=== PATIENT | male | born 1965 | race Caucasian/White ===

== ENCOUNTER 2017-10-08 23:47 | Inpatient (IN) | payer MEDICAID ==
[~2017-10-08] VITALS: Ht 175.3 cm; Wt 76.7 kg
[2017-10-08] MEDS ORDERED: DIVA500T35 PO (23:57)
[2017-10-08] MEDS ORDERED: GABA-531 PO (23:57)
[2017-10-08] MEDS ORDERED: QUET300T2 PO (23:57)
[2017-10-08] MEDS ORDERED: SERT50TA12 PO (23:57)
[2017-10-09 01:40] LABS: BASOPHILS # (AUTO) 0.09 K/uL (0.00-0.20); EOSINOPHILS # (AUTO) 0.78 K/uL (0.00-0.70); EOSINOPHILS % (AUTO) 8.67 % (1.0-6.0); HEMATOCRIT 42.2 % (41-53); HEMOGLOBIN 14.1 g/dL (13.5-17.5); LYMPHOCYTES # (AUTO) 2.2 K/uL (1.0-4.8); LYMPHOCYTES % (AUTO) 24.7 % (22.0-44.0); MEAN CORPUSCULAR HEMOGLOBIN 31.9 pg (26.0-34.0); MEAN CORPUSCULAR HGB CONC 33.4 G/dL (31.0-37.0); MEAN CORPUSCULAR VOLUME 95 fL (80-100); MONOCYTES # (AUTO) 1.1 K/uL (0.1-1.0); MONOCYTES % (AUTO) 11.8 % (2.0-9.0); NEUTROPHILS # (AUTO) 4.9 K/uL (1.8-7.7); NEUTROPHILS % (AUTO) 53.9 % (40.0-70.0); PLATELET COUNT (AUTO) 248 K/uL (150-450); RED BLOOD CELL COUNT(AUTO) 4.43 MIL/uL (4.50-5.90); RED CELL DISTRIBUTION WIDTH 14.8 % (11.5-14.5)
[2017-10-09 01:53] LABS: ANION GAP 3 mmol/L (8-16); CALCIUM, TOTAL 8.5 mg/dL (8.8-10.5); CARBON DIOXIDE 36 mmol/L (22-29); CHLORIDE 102 mmol/L (98-107); CREATININE 1.26 mg/dL (0.60-1.30); GLOMERULAR FILTR. RATE CALC 60 mL/min (>60); GLUCOSE,RANDOM 98 mg/dL (70-110); POTASSIUM 4.2 mmol/L (3.5-5.1); SODIUM SERUM 141 mmol/L (136-145); UREA NITROGEN, BLOOD 24 mg/dL (7-18)
[2017-10-09 01:59] LABS: ALANINE AMINOTRANSFERASE 125 U/L (12-78); ALBUMIN 3.8 g/dL (3.4-5.0); ALKALINE PHOSPHATASE 118 U/L (46-116); ASPARTATE AMINOTRANSFERASE 38 U/L (15-37); BILIRUBIN,TOTAL 0.2 mg/dL (0.1-1.0); CHOL/HDL RATIO 3.3 (4.2-7.3); CHOLESTEROL 169 mg/dL (131-200); HDL CHOLESTEROL 52 mg/dL (40-60); LDL CHOL (CALC.) 97 mg/dL (0-130); TOTAL PROTEIN, SERUM 8.1 g/dL (6.4-8.2); TRIGLYCERIDES 100 mg/dL (15-150)
[2017-10-09 03:55] VITALS: BP 128/72
[2017-10-09] MEDS: QUEtiapine FUMARATE 100 MG TABLET PO PRN ×2 (04:28→23:55)
[2017-10-09] MEDS: NICOTINE 21 MG/24 HOUR PATCH TD SCH (08:21)
[2017-10-09 08:43] VITALS: BP 102/52
[2017-10-09] MEDS ORDERED: PNEUMOCOCCAL VACCINE POLYVALENT 0.5 ML VIAL [PPSV23] IM ONE (09:00)
[2017-10-09] MEDS: QUEtiapine FUMARATE 300 MG TABLET PO SCH (10:00)
[2017-10-09] MEDS: SERTRALINE HCL 50 MG TABLET PO SCH (10:01)
[2017-10-09] MEDS: GABAPENTIN 300 MG CAPSULE PO SCH ×2 (12:45→16:07)
[2017-10-09 16:23] VITALS: BP 100/60
[2017-10-10 07:11] VITALS: BP 111/66
[2017-10-10 08:06] VITALS: BP 118/76
[2017-10-10] MEDS: NICOTINE 21 MG/24 HOUR PATCH TD SCH (08:32)
[2017-10-10] MEDS: GABAPENTIN 300 MG CAPSULE PO SCH ×3 (08:32→16:06)
[2017-10-10] MEDS: QUEtiapine FUMARATE 300 MG TABLET PO SCH (08:32)
[2017-10-10] MEDS: SERTRALINE HCL 50 MG TABLET PO SCH (08:32)
[2017-10-10 16:11] VITALS: BP 111/63
[2017-10-10] MEDS ORDERED: ACETAMINOPHEN 325 MG TABLET PO PRN (20:00)
[2017-10-10] MEDS ORDERED: IBUPROFEN 400 MG TABLET PO PRN (20:00)
[2017-10-11 00:01] VITALS: BP 114/67
[2017-10-11] MEDS: QUEtiapine FUMARATE 100 MG TABLET PO PRN ×2 (00:31→20:04)
[2017-10-11 08:28] VITALS: BP 110/53
[2017-10-11] MEDS: SERTRALINE HCL 50 MG TABLET PO SCH (08:49)
[2017-10-11] MEDS: NICOTINE 21 MG/24 HOUR PATCH TD SCH (08:49)
[2017-10-11] MEDS: GABAPENTIN 300 MG CAPSULE PO SCH ×3 (08:49→16:23)
[2017-10-11] MEDS: QUEtiapine FUMARATE 300 MG TABLET PO SCH (08:49)
[2017-10-11 09:22] LABS: HEMOGLOBIN A1C 5.9 % (4.5-6.2)
[2017-10-11 09:42] LABS: THYROID STIMULATING HORMONE 2.64 uIU/mL (0.36-3.74)
[2017-10-11 17:47] VITALS: BP 108/63
[2017-10-12 00:15] VITALS: BP 102/63
[2017-10-12 04:29] VITALS: BP 114/69
[2017-10-12] MEDS: QUEtiapine FUMARATE 100 MG TABLET PO PRN ×2 (04:30→21:24)
[2017-10-12] MEDS: LORazepam 2 MG TABLET PO PRN ×2 (04:30→20:57)
[2017-10-12 08:26] VITALS: BP 100/63
[2017-10-12] MEDS: SERTRALINE HCL 50 MG TABLET PO SCH (08:56)
[2017-10-12] MEDS: GABAPENTIN 300 MG CAPSULE PO SCH ×3 (08:56→16:16)
[2017-10-12] MEDS: QUEtiapine FUMARATE 300 MG TABLET PO SCH (08:57)
[2017-10-12] MEDS: NICOTINE 21 MG/24 HOUR PATCH TD SCH (08:57)
[2017-10-12] MEDS: DIVALPROEX SODIUM 500 MG ER TABLET PO SCH (16:16)
[2017-10-12 16:17] VITALS: BP 114/66
[2017-10-12 20:50] VITALS: BP 118/70
[2017-10-13 00:20] VITALS: BP 121/70
[2017-10-13 08:29] VITALS: BP 103/65
[2017-10-13] MEDS: DIVALPROEX SODIUM 500 MG ER TABLET PO SCH ×3 (09:29→16:56)
[2017-10-13] MEDS: QUEtiapine FUMARATE 300 MG TABLET PO SCH (09:29)
[2017-10-13] MEDS: SERTRALINE HCL 50 MG TABLET PO SCH (09:29)
[2017-10-13] MEDS: GABAPENTIN 300 MG CAPSULE PO SCH ×3 (09:29→16:55)
[2017-10-13] MEDS: NICOTINE 21 MG/24 HOUR PATCH TD SCH (09:29)
[2017-10-13 16:38] VITALS: BP 103/62
[2017-10-13] MEDS: QUEtiapine FUMARATE 100 MG TABLET PO PRN ×2 (16:55→20:58)
[2017-10-13] MEDS: LORazepam 2 MG TABLET PO PRN ×2 (16:56→20:58)
[2017-10-14 06:03] VITALS: BP 105/69
[2017-10-14 08:26] VITALS: BP 110/58
[2017-10-14] MEDS: NICOTINE 21 MG/24 HOUR PATCH TD SCH (08:28)
[2017-10-14] MEDS: QUEtiapine FUMARATE 300 MG TABLET PO SCH (08:28)
[2017-10-14] MEDS: DIVALPROEX SODIUM 500 MG ER TABLET PO SCH ×3 (08:28→16:11)
[2017-10-14] MEDS: GABAPENTIN 300 MG CAPSULE PO SCH ×3 (08:28→16:11)
[2017-10-14] MEDS: SERTRALINE HCL 50 MG TABLET PO SCH (08:28)
[2017-10-14] MEDS: LORazepam 2 MG TABLET PO PRN (19:34)
[2017-10-14] MEDS: QUEtiapine FUMARATE 100 MG TABLET PO PRN (19:34)
[2017-10-15 06:17] VITALS: BP 111/66
[2017-10-15 08:14] VITALS: BP 112/70
[2017-10-15] MEDS: GABAPENTIN 300 MG CAPSULE PO SCH ×3 (08:42→16:10)
[2017-10-15] MEDS: DIVALPROEX SODIUM 500 MG ER TABLET PO SCH ×3 (08:42→16:10)
[2017-10-15] MEDS: SERTRALINE HCL 50 MG TABLET PO SCH (08:42)
[2017-10-15] MEDS: NICOTINE 21 MG/24 HOUR PATCH TD SCH (08:46)
[2017-10-15] MEDS: LORazepam 2 MG TABLET PO PRN ×2 (12:56→19:08)
[2017-10-15 15:33] VITALS: BP 109/52
[2017-10-15 16:10] VITALS: BP 115/66
[2017-10-15 19:05] VITALS: BP 112/70
[2017-10-15] MEDS: ZOLPIDEM TARTRATE 10 MG TABLET PO PRN (20:05)
[2017-10-15] MEDS: QUEtiapine FUMARATE 300 MG TABLET PO SCH (20:05)
[2017-10-16 02:16] VITALS: BP 111/87
[2017-10-16 08:38] VITALS: BP 102/58
[2017-10-16] MEDS: SERTRALINE HCL 50 MG TABLET PO SCH (08:59)
[2017-10-16] MEDS: GABAPENTIN 300 MG CAPSULE PO SCH ×3 (08:59→16:02)
[2017-10-16] MEDS: NICOTINE 21 MG/24 HOUR PATCH TD SCH (08:59)
[2017-10-16] MEDS: DIVALPROEX SODIUM 500 MG ER TABLET PO SCH ×3 (08:59→16:02)
[2017-10-16] MEDS: LORazepam 2 MG TABLET PO PRN (12:01)
[2017-10-16] MEDS: QUEtiapine FUMARATE 100 MG TABLET PO PRN (12:01)
[2017-10-16 16:33] VITALS: BP 109/57
[2017-10-16] MEDS: QUEtiapine FUMARATE 300 MG TABLET PO SCH (20:09)
[2017-10-16] MEDS: ZOLPIDEM TARTRATE 10 MG TABLET PO PRN (21:47)
[2017-10-17 02:57] VITALS: BP 119/71
[2017-10-17] MEDS: DIVALPROEX SODIUM 500 MG ER TABLET PO SCH ×3 (09:07→16:11)
[2017-10-17] MEDS: GABAPENTIN 300 MG CAPSULE PO SCH ×3 (09:07→16:11)
[2017-10-17] MEDS: NICOTINE 21 MG/24 HOUR PATCH TD SCH (09:07)
[2017-10-17] MEDS: SERTRALINE HCL 50 MG TABLET PO SCH (09:07)
[2017-10-17 16:29] VITALS: BP 122/64
[2017-10-17] MEDS: QUEtiapine FUMARATE 300 MG TABLET PO SCH (20:11)
[2017-10-17] MEDS: ZOLPIDEM TARTRATE 10 MG TABLET PO PRN (21:02)
[2017-10-18 05:11] VITALS: BP 115/64
[2017-10-18 07:57] LABS: FREE T4 (FREE THYROXINE) 0.61 ng/dL (0.76-1.46)
[2017-10-18 08:06] VITALS: BP 120/81
[2017-10-18] MEDS: GABAPENTIN 300 MG CAPSULE PO SCH ×3 (09:04→16:25)
[2017-10-18] MEDS: DIVALPROEX SODIUM 500 MG ER TABLET PO SCH ×3 (09:04→16:25)
[2017-10-18] MEDS: SERTRALINE HCL 50 MG TABLET PO SCH (09:04)
[2017-10-18] MEDS: LORazepam 2 MG TABLET PO PRN (09:04)
[2017-10-18] MEDS: NICOTINE 21 MG/24 HOUR PATCH TD SCH (09:05)
[2017-10-18] MEDS: QUEtiapine FUMARATE 100 MG TABLET PO PRN (11:05)
[2017-10-18 16:27] VITALS: BP 113/71
[2017-10-18] MEDS: QUEtiapine FUMARATE 200 MG TABLET PO SCH (20:23)
[2017-10-18] MEDS: ZOLPIDEM TARTRATE 10 MG TABLET PO PRN (21:01)
[2017-10-19 00:30] VITALS: BP 121/86
[2017-10-19 08:05] VITALS: BP 105/68
[2017-10-19] MEDS: DIVALPROEX SODIUM 500 MG ER TABLET PO SCH ×3 (09:11→16:48)
[2017-10-19] MEDS: SERTRALINE HCL 50 MG TABLET PO SCH (09:11)
[2017-10-19] MEDS: GABAPENTIN 300 MG CAPSULE PO SCH ×3 (09:11→16:48)
[2017-10-19] MEDS: NICOTINE 21 MG/24 HOUR PATCH TD SCH (09:12)
[2017-10-19] MEDS: LORazepam 2 MG TABLET PO PRN (12:01)
[2017-10-19] MEDS: QUEtiapine FUMARATE 100 MG TABLET PO PRN (13:58)
[2017-10-19 16:40] VITALS: BP 110/65
[2017-10-19] MEDS: QUEtiapine FUMARATE 200 MG TABLET PO SCH (20:07)
[2017-10-19] MEDS: ZOLPIDEM TARTRATE 10 MG TABLET PO PRN (20:07)
[2017-10-20 00:35] VITALS: BP 108/65
[2017-10-20 08:13] VITALS: BP 113/64
[2017-10-20] MEDS: SERTRALINE HCL 50 MG TABLET PO SCH (08:53)
[2017-10-20] MEDS: DIVALPROEX SODIUM 500 MG ER TABLET PO SCH ×3 (08:53→16:26)
[2017-10-20] MEDS: GABAPENTIN 300 MG CAPSULE PO SCH ×3 (08:53→16:26)
[2017-10-20] MEDS: NICOTINE 21 MG/24 HOUR PATCH TD SCH (08:53)
[2017-10-20] MEDS: QUEtiapine FUMARATE 100 MG TABLET PO PRN (12:26)
[2017-10-20 16:12] VITALS: BP 115/69
[2017-10-20] MEDS: QUEtiapine FUMARATE 200 MG TABLET PO SCH (20:13)
[2017-10-21 00:34] VITALS: BP 115/63
[2017-10-21] MEDS ORDERED: DIVA500T52 PO (04:08)
[2017-11-13] MEDS ORDERED: SERT100T12 PO (14:32)
== END 2017-10-21 06:25 | disposition home or self-care (01) | DRG 750 ==
LOC: EMS 23:49 → B2S 10-09 02:41
PROVIDERS: ADMIT Psychiatry & Neurology Child & Adolescent Psychiatry; ATTEND Psychiatry & Neurology Child & Adolescent Psychiatry
DX: F25.0 Schizoaffective disorder, bipolar type (principal); R74.0 Nonspecific elevation of levels of transaminase and lactic acid dehydrogenase [LDH]; F10.10 Alcohol abuse, uncomplicated; F17.210 Nicotine dependence, cigarettes, uncomplicated; G47.9 Sleep disorder, unspecified; J45.909 Unspecified asthma, uncomplicated; F19.10 Other psychoactive substance abuse, uncomplicated; Z88.0 Allergy status to penicillin; Z79.899 Other long term (current) drug therapy; Z71.41 Alcohol abuse counseling and surveillance of alcoholic; Z71.51 Drug abuse counseling and surveillance of drug abuser; Z28.21 Immunization not carried out because of patient refusal
CPT/HCPCS: 83036; 84439; 84443; 90471; 99285; G0480

== ENCOUNTER 2017-10-29 13:19 | Inpatient (IN) | payer MEDICAID ==
[~2017-10-29] VITALS: Ht 177.8 cm; Wt 82.1 kg
[~2017-10-29 13:19] MED LIST: DIVA500T52 PO; GABA-531 PO; QUET300T2 PO; SERT50TA12 PO
[2017-10-29 14:23] LABS: BASOPHILS # (AUTO) 0.07 K/uL (0.00-0.20); BASOPHILS % (AUTO) 0.8 % (0.0-2.0); EOSINOPHILS # (AUTO) 0.37 K/uL (0.00-0.70); EOSINOPHILS % (AUTO) 4.67 % (1.0-6.0); HEMATOCRIT 39.1 % (41-53); LYMPHOCYTES # (AUTO) 2.5 K/uL (1.0-4.8); LYMPHOCYTES % (AUTO) 31.7 % (22.0-44.0); MEAN CORPUSCULAR HEMOGLOBIN 31.8 pg (26.0-34.0); MEAN CORPUSCULAR HGB CONC 33.3 G/dL (31.0-37.0); MEAN CORPUSCULAR VOLUME 96 fL (80-100); MONOCYTES # (AUTO) 0.9 K/uL (0.1-1.0); MONOCYTES % (AUTO) 11.8 % (2.0-9.0); NEUTROPHILS % (AUTO) 51.1 % (40.0-70.0); PLATELET COUNT (AUTO) 247 K/uL (150-450); RED BLOOD CELL COUNT(AUTO) 4.09 MIL/uL (4.50-5.90); RED CELL DISTRIBUTION WIDTH 14.9 % (11.5-14.5)
[2017-10-29 14:44] LABS: ANION GAP 10 mmol/L (8-16); CALCIUM, TOTAL 8.7 mg/dL (8.8-10.5); CARBON DIOXIDE 28 mmol/L (22-29); CHLORIDE 101 mmol/L (98-107); CREATININE 1.21 mg/dL (0.60-1.30); GLOMERULAR FILTR. RATE CALC > 60 mL/min (>60); GLUCOSE,RANDOM 88 mg/dL (70-110); POTASSIUM 3.8 mmol/L (3.5-5.1); SODIUM SERUM 139 mmol/L (136-145); UREA NITROGEN, BLOOD 20 mg/dL (7-18)
[2017-10-29 14:50] LABS: ALANINE AMINOTRANSFERASE 140 U/L (12-78); ALKALINE PHOSPHATASE 55 U/L (46-116); ASPARTATE AMINOTRANSFERASE 56 U/L (15-37); BILIRUBIN,TOTAL 0.4 mg/dL (0.1-1.0); TOTAL PROTEIN, SERUM 8.4 g/dL (6.4-8.2)
[2017-10-29] MEDS ORDERED: HALOPERIDOL LACTATE 5 MG/ML VIAL ONE (14:50)
[2017-10-29] MEDS ORDERED: DiphenhydrAMINE HCL 50 MG/ML VIAL ONE (14:50)
[2017-10-29] MEDS ORDERED: LORazepam 2 MG/ML VIAL ONE (14:50)
[2017-10-29 15:00] LABS: VALPROIC ACID 88 mcg/mL (50-100)
[2017-10-29] MEDS ORDERED: DiphenhydrAMINE HCL 50 MG/ML VIAL IM ONE (15:00)
[2017-10-29] MEDS ORDERED: HALOPERIDOL LACTATE 5 MG/ML VIAL IM ONE (15:00)
[2017-10-29] MEDS ORDERED: LORazepam 2 MG/ML VIAL IM ONE (15:00)
[2017-10-29 17:30] VITALS: BP 129/76
[2017-10-29] MEDS ORDERED: PNEUMOCOCCAL VACCINE POLYVALENT 0.5 ML VIAL [PPSV23] IM ONE (18:30)
[2017-10-30 06:50] VITALS: BP 136/79
[2017-10-30 08:06] VITALS: BP 106/60
[2017-10-30] MEDS: LORazepam 2 MG TABLET PO PRN ×2 (09:10→13:37)
[2017-10-30] MEDS: NICOTINE 14 MG/24 HOUR PATCH TD SCH (09:10)
[2017-10-30] MEDS: HALOPERIDOL 5 MG TABLET PO PRN ×2 (09:10→13:37)
[2017-10-30] MEDS ORDERED: SERTRALINE HCL 50 MG TABLET PO SCH (09:45)
[2017-10-30] MEDS: DIVALPROEX SODIUM 500 MG ER TABLET PO SCH ×2 (13:37→16:44)
[2017-10-30] MEDS: GABAPENTIN 300 MG CAPSULE PO SCH ×2 (13:37→16:45)
[2017-10-30] MEDS ORDERED: QUET200T PO (14:14)
[2017-10-30] MEDS ORDERED: SERTRALINE HCL 50 MG TABLET PO ONE (14:15)
[2017-10-30 16:00] VITALS: BP 132/67
[2017-10-30] MEDS: QUEtiapine FUMARATE 200 MG TABLET PO SCH (20:28)
[2017-10-30] MEDS ORDERED: ALBUTEROL SULFATE HFA 90 MCG/PUFF 8 GM INHALER IH PRN (20:45)
[2017-10-30] MEDS ORDERED: ACETAMINOPHEN 325 MG TABLET PO PRN (20:45)
[2017-10-30] MEDS: ZOLPIDEM TARTRATE 10 MG TABLET PO PRN (21:07)
[2017-10-31 06:26] VITALS: BP 106/64
[2017-10-31] MEDS: FERROUS SULFATE 325 MG EC TABLET PO SCH ×3 (06:34→17:14)
[2017-10-31 08:14] VITALS: BP 114/63
[2017-10-31] MEDS: SERTRALINE HCL 100 MG TABLET PO SCH (09:28)
[2017-10-31] MEDS: DIVALPROEX SODIUM 500 MG ER TABLET PO SCH ×3 (09:28→17:14)
[2017-10-31] MEDS: NICOTINE 14 MG/24 HOUR PATCH TD SCH (09:28)
[2017-10-31] MEDS: GABAPENTIN 300 MG CAPSULE PO SCH ×3 (09:28→17:14)
[2017-10-31] MEDS: LORazepam 2 MG TABLET PO PRN ×2 (09:28→17:14)
[2017-10-31] MEDS: HALOPERIDOL 5 MG TABLET PO PRN (09:34)
[2017-10-31 16:00] VITALS: BP 138/65
[2017-10-31] MEDS: QUEtiapine FUMARATE 200 MG TABLET PO SCH (21:15)
[2017-11-01 04:45] VITALS: BP 136/86
[2017-11-01] MEDS: FERROUS SULFATE 325 MG EC TABLET PO SCH ×3 (06:27→16:47)
[2017-11-01 08:12] VITALS: BP 129/70
[2017-11-01] MEDS: GABAPENTIN 300 MG CAPSULE PO SCH ×3 (08:48→16:47)
[2017-11-01] MEDS: LORazepam 2 MG TABLET PO PRN ×2 (08:48→16:48)
[2017-11-01] MEDS: DIVALPROEX SODIUM 500 MG ER TABLET PO SCH ×3 (08:49→16:48)
[2017-11-01] MEDS: NICOTINE 14 MG/24 HOUR PATCH TD SCH (08:49)
[2017-11-01] MEDS: SERTRALINE HCL 100 MG TABLET PO SCH (09:23)
[2017-11-01] MEDS: HALOPERIDOL 5 MG TABLET PO PRN ×2 (13:49→17:49)
[2017-11-01 16:00] VITALS: BP 118/67
[2017-11-01] MEDS: QUEtiapine FUMARATE 200 MG TABLET PO SCH (20:10)
[2017-11-01] MEDS: ZOLPIDEM TARTRATE 10 MG TABLET PO PRN (20:10)
[2017-11-02 02:30] VITALS: BP 132/77
[2017-11-02] MEDS: FERROUS SULFATE 325 MG EC TABLET PO SCH ×3 (06:17→16:25)
[2017-11-02 08:11] VITALS: BP 112/64
[2017-11-02 09:10] LABS: CHOL/HDL RATIO 3.3 (4.2-7.3); THYROID STIMULATING HORMONE 2.37 uIU/mL (0.36-3.74)
[2017-11-02] MEDS: NICOTINE 14 MG/24 HOUR PATCH TD SCH (09:13)
[2017-11-02] MEDS: GABAPENTIN 300 MG CAPSULE PO SCH ×3 (09:13→16:25)
[2017-11-02] MEDS: DIVALPROEX SODIUM 500 MG ER TABLET PO SCH ×3 (09:14→16:25)
[2017-11-02] MEDS: SERTRALINE HCL 100 MG TABLET PO SCH (09:14)
[2017-11-02] MEDS: LORazepam 2 MG TABLET PO PRN (09:55)
[2017-11-02] MEDS: HALOPERIDOL 5 MG TABLET PO PRN (09:55)
[2017-11-02] MEDS: QUEtiapine FUMARATE 100 MG TABLET PO SCH (12:15)
[2017-11-02 16:09] VITALS: BP 111/66
[2017-11-02] MEDS: QUEtiapine FUMARATE 200 MG TABLET PO SCH (20:50)
[2017-11-03 03:51] VITALS: BP 136/72
[2017-11-03] MEDS: FERROUS SULFATE 325 MG EC TABLET PO SCH ×3 (06:09→17:17)
[2017-11-03] MEDS: DIVALPROEX SODIUM 500 MG ER TABLET PO SCH ×3 (08:46→17:17)
[2017-11-03] MEDS: NICOTINE 14 MG/24 HOUR PATCH TD SCH (08:46)
[2017-11-03] MEDS: GABAPENTIN 300 MG CAPSULE PO SCH ×3 (08:46→17:16)
[2017-11-03] MEDS: QUEtiapine FUMARATE 100 MG TABLET PO SCH (08:47)
[2017-11-03] MEDS: SERTRALINE HCL 100 MG TABLET PO SCH (08:47)
[2017-11-03 10:45] VITALS: BP 116/65
[2017-11-03] MEDS: HALOPERIDOL 5 MG TABLET PO PRN ×2 (12:46→17:17)
[2017-11-03] MEDS: LORazepam 2 MG TABLET PO PRN ×2 (12:46→17:16)
[2017-11-03 16:00] VITALS: BP 110/69
[2017-11-03] MEDS: QUEtiapine FUMARATE 200 MG TABLET PO SCH (20:08)
[2017-11-03] MEDS: ZOLPIDEM TARTRATE 10 MG TABLET PO PRN (20:08)
[2017-11-04 00:20] VITALS: BP 101/68
[2017-11-04] MEDS: FERROUS SULFATE 325 MG EC TABLET PO SCH ×3 (06:35→17:06)
[2017-11-04] MEDS: DIVALPROEX SODIUM 500 MG ER TABLET PO SCH ×3 (08:11→17:06)
[2017-11-04] MEDS: GABAPENTIN 300 MG CAPSULE PO SCH ×3 (08:11→17:06)
[2017-11-04] MEDS: SERTRALINE HCL 100 MG TABLET PO SCH (08:11)
[2017-11-04] MEDS: QUEtiapine FUMARATE 100 MG TABLET PO SCH (08:11)
[2017-11-04] MEDS: NICOTINE 14 MG/24 HOUR PATCH TD SCH (08:12)
[2017-11-04] MEDS: HALOPERIDOL 5 MG TABLET PO PRN (13:00)
[2017-11-04] MEDS: LORazepam 2 MG TABLET PO PRN (13:00)
[2017-11-04 16:15] VITALS: BP 110/61
[2017-11-04] MEDS: QUEtiapine FUMARATE 200 MG TABLET PO SCH (21:04)
[2017-11-05 03:45] VITALS: BP 113/68
[2017-11-05] MEDS: FERROUS SULFATE 325 MG EC TABLET PO SCH ×3 (06:37→16:08)
[2017-11-05] MEDS: QUEtiapine FUMARATE 100 MG TABLET PO SCH (08:48)
[2017-11-05] MEDS: SERTRALINE HCL 100 MG TABLET PO SCH (08:48)
[2017-11-05] MEDS: GABAPENTIN 300 MG CAPSULE PO SCH ×3 (08:48→16:08)
[2017-11-05] MEDS: DIVALPROEX SODIUM 500 MG ER TABLET PO SCH ×3 (08:48→16:08)
[2017-11-05] MEDS: NICOTINE 14 MG/24 HOUR PATCH TD SCH (08:48)
[2017-11-05 13:00] VITALS: BP 112/68
[2017-11-05] MEDS: HALOPERIDOL 5 MG TABLET PO PRN (13:00)
[2017-11-05] MEDS: LORazepam 2 MG TABLET PO PRN (13:01)
[2017-11-05 16:06] VITALS: BP 115/76
[2017-11-05] MEDS: QUEtiapine FUMARATE 200 MG TABLET PO SCH (20:12)
[2017-11-06 06:30] VITALS: BP 117/60
[2017-11-06] MEDS: FERROUS SULFATE 325 MG EC TABLET PO SCH ×3 (07:04→16:07)
[2017-11-06 08:02] VITALS: BP 117/79
[2017-11-06] MEDS: SERTRALINE HCL 100 MG TABLET PO SCH (08:54)
[2017-11-06] MEDS: NICOTINE 14 MG/24 HOUR PATCH TD SCH (08:54)
[2017-11-06] MEDS: DIVALPROEX SODIUM 500 MG ER TABLET PO SCH ×3 (08:54→16:06)
[2017-11-06] MEDS: LORazepam 2 MG TABLET PO PRN ×3 (08:54→17:19)
[2017-11-06] MEDS: GABAPENTIN 300 MG CAPSULE PO SCH ×3 (08:54→16:06)
[2017-11-06] MEDS: HALOPERIDOL 5 MG TABLET PO PRN ×3 (08:55→18:01)
[2017-11-06] MEDS: QUEtiapine FUMARATE 100 MG TABLET PO SCH (08:55)
[2017-11-06 16:00] VITALS: BP 124/85
[2017-11-06] MEDS: QUEtiapine FUMARATE 200 MG TABLET PO SCH (20:32)
[2017-11-07 00:38] VITALS: BP 101/60
[2017-11-07] MEDS: FERROUS SULFATE 325 MG EC TABLET PO SCH ×3 (06:24→16:15)
[2017-11-07 09:19] VITALS: BP 101/62
[2017-11-07] MEDS: GABAPENTIN 300 MG CAPSULE PO SCH ×3 (09:39→16:15)
[2017-11-07] MEDS: DIVALPROEX SODIUM 500 MG ER TABLET PO SCH ×3 (09:39→16:15)
[2017-11-07] MEDS: NICOTINE 14 MG/24 HOUR PATCH TD SCH (09:39)
[2017-11-07] MEDS: QUEtiapine FUMARATE 100 MG TABLET PO SCH (09:40)
[2017-11-07] MEDS: LORazepam 2 MG TABLET PO PRN ×2 (09:40→15:12)
[2017-11-07] MEDS: SERTRALINE HCL 100 MG TABLET PO SCH (09:40)
[2017-11-07] MEDS: HALOPERIDOL 5 MG TABLET PO PRN ×2 (09:40→15:12)
[2017-11-07 16:00] VITALS: BP 126/70
[2017-11-07] MEDS: QUEtiapine FUMARATE 200 MG TABLET PO SCH (20:10)
[2017-11-08 06:07] VITALS: BP 131/85
[2017-11-08] MEDS: FERROUS SULFATE 325 MG EC TABLET PO SCH ×3 (06:42→16:10)
[2017-11-08] MEDS: IBUPROFEN 400 MG TABLET PO PRN (07:10)
[2017-11-08] MEDS: GABAPENTIN 300 MG CAPSULE PO SCH ×3 (08:26→16:09)
[2017-11-08] MEDS: QUEtiapine FUMARATE 100 MG TABLET PO SCH (08:26)
[2017-11-08] MEDS: DIVALPROEX SODIUM 500 MG ER TABLET PO SCH ×3 (08:26→16:10)
[2017-11-08] MEDS: SERTRALINE HCL 100 MG TABLET PO SCH (08:26)
[2017-11-08] MEDS: NICOTINE 14 MG/24 HOUR PATCH TD SCH (08:27)
[2017-11-08 08:35] VITALS: BP 104/61
[2017-11-08] MEDS ORDERED: LORazepam 2 MG/ML VIAL ONE (12:45)
[2017-11-08] MEDS ORDERED: DiphenhydrAMINE HCL 50 MG/ML VIAL ONE (12:46)
[2017-11-08] MEDS ORDERED: HALOPERIDOL LACTATE 5 MG/ML VIAL ONE (12:46)
[2017-11-08] MEDS ORDERED: LORazepam 2 MG/ML VIAL IM ONE (13:00)
[2017-11-08] MEDS ORDERED: HALOPERIDOL LACTATE 5 MG/ML VIAL IM ONE (13:00)
[2017-11-08] MEDS ORDERED: DiphenhydrAMINE HCL 50 MG/ML VIAL IM ONE (13:00)
[2017-11-08] MEDS: HALOPERIDOL 5 MG TABLET PO PRN (15:47)
[2017-11-08] MEDS: LORazepam 2 MG TABLET PO PRN (15:48)
[2017-11-08 16:01] VITALS: BP 108/64
[2017-11-08] MEDS ORDERED: QUEtiapine FUMARATE 100 MG TABLET PO ONE (18:45)
[2017-11-08] MEDS: QUEtiapine FUMARATE 200 MG TABLET PO SCH (20:16)
[2017-11-09 06:07] VITALS: BP 118/68
[2017-11-09] MEDS: FERROUS SULFATE 325 MG EC TABLET PO SCH (06:39)
[2017-11-09 08:30] VITALS: BP 102/62
[2017-11-09] MEDS: NICOTINE 14 MG/24 HOUR PATCH TD SCH (08:34)
[2017-11-09] MEDS: GABAPENTIN 300 MG CAPSULE PO SCH (08:34)
[2017-11-09] MEDS: DIVALPROEX SODIUM 500 MG ER TABLET PO SCH (08:34)
[2017-11-09] MEDS: SERTRALINE HCL 100 MG TABLET PO SCH (08:34)
[2017-11-09] MEDS: QUEtiapine FUMARATE 100 MG TABLET PO SCH (08:34)
[2017-11-09] MEDS: IBUPROFEN 400 MG TABLET PO PRN (10:25)
[2017-11-09] MEDS ORDERED: QUET100T PO (10:28)
== END 2017-11-09 11:15 | disposition home or self-care (01) | DRG 750 ==
LOC: EMS 13:19 → B3A 15:50 → B2S 11-03 20:15
PROVIDERS: ADMIT Psychiatry & Neurology Child & Adolescent Psychiatry; ATTEND Psychiatry & Neurology Child & Adolescent Psychiatry
PROC: 3E0234Z Introduction of Serum, Toxoid and Vaccine into Muscle, Percutaneous Approach (ICD-10-PCS; principal; 2017-10-29)
DX: F25.1 Schizoaffective disorder, depressive type (principal); R45.851 Suicidal ideations; F22 Delusional disorders; R74.0 Nonspecific elevation of levels of transaminase and lactic acid dehydrogenase [LDH]; D64.9 Anemia, unspecified; F10.10 Alcohol abuse, uncomplicated; J45.909 Unspecified asthma, uncomplicated; Z79.899 Other long term (current) drug therapy; Z88.0 Allergy status to penicillin; Z23 Encounter for immunization
CPT/HCPCS: 83036; 84443; 87081; 96372; 99285; G0480; J1200; J1630; J2060

== ENCOUNTER 2017-11-11 20:09 | Emergency (ER) | payer MEDICAID ==
[~2017-11-11] VITALS: Ht 175.3 cm; Wt 83.2 kg
[~2017-11-11 20:09] MED LIST changes: +QUET100T PO; +QUET200T PO; -QUET300T2 PO
[2017-11-11] MEDS ORDERED: ALBU8HFA4 IH (20:20)
[2017-11-11 21:22] LABS: BASOPHILS % (AUTO) 0.6 % (0.0-2.0); EOSINOPHILS % (AUTO) 2.2 % (1.0-6.0); HEMATOCRIT 42.8 % (41-53); HEMOGLOBIN 14.5 g/dL (13.5-17.5); LYMPHOCYTES # (AUTO) 2.6 K/uL (1.0-4.8); MEAN CORPUSCULAR HEMOGLOBIN 31.8 pg (26.0-34.0); MEAN CORPUSCULAR HGB CONC 33.9 G/dL (31.0-37.0); MEAN CORPUSCULAR VOLUME 94 fL (80-100); MONOCYTES # (AUTO) 1.6 K/uL (0.1-1.0); MONOCYTES % (AUTO) 14.2 % (2.0-9.0); NEUTROPHILS # (AUTO) 6.8 K/uL (1.8-7.7); PLATELET COUNT (AUTO) 251 K/uL (150-450); RED BLOOD CELL COUNT(AUTO) 4.57 MIL/uL (4.50-5.90); RED CELL DISTRIBUTION WIDTH 14.9 % (11.5-14.5)
[2017-11-11 21:33] LABS: ANION GAP 11 mmol/L (8-16); CARBON DIOXIDE 27 mmol/L (22-29); CHLORIDE 96 mmol/L (98-107); GLOMERULAR FILTR. RATE CALC > 60 mL/min (>60); GLUCOSE,RANDOM 106 mg/dL (70-110); POTASSIUM 3.7 mmol/L (3.5-5.1); SODIUM SERUM 134 mmol/L (136-145); UREA NITROGEN, BLOOD 27 mg/dL (7-18)
[2017-11-11 21:39] LABS: ALANINE AMINOTRANSFERASE 183 U/L (12-78); ALBUMIN 4.3 g/dL (3.4-5.0); ALKALINE PHOSPHATASE 64 U/L (46-116); ASPARTATE AMINOTRANSFERASE 97 U/L (15-37); BILIRUBIN,TOTAL 0.6 mg/dL (0.1-1.0); VALPROIC ACID 7 mcg/mL (50-100)
[2017-11-11 22:21] VITALS: BP 135/80
[2017-11-13] MEDS ORDERED: SERT100T12 PO (14:32)
== END 2017-11-11 22:28 | disposition left against medical advice (07) ==
LOC: EMS 20:10
DX: F20.9 Schizophrenia, unspecified (principal); M25.571 Pain in right ankle and joints of right foot; J45.909 Unspecified asthma, uncomplicated; F31.9 Bipolar disorder, unspecified; F17.210 Nicotine dependence, cigarettes, uncomplicated; Z88.0 Allergy status to penicillin
CPT/HCPCS: 36415; 73610; 80053; 80164; 85025; 99285; G0480; 99284

== ENCOUNTER 2017-12-29 16:04 | Inpatient (IN) | payer MEDICAID ==
[~2017-12-29] VITALS: Ht 175.3 cm; Wt 71.1 kg
[2017-12-29 15:28] VITALS: BP 134/67
[~2017-12-29 16:04] MED LIST changes: +CLIN300C3 PO; +HALOPERIDOL 5 MG TABLET PO PRN; +LORazepam 2 MG TABLET PO PRN; -QUET100T PO; +SERT100T12 PO; -SERT50TA12 PO; +ZOLPIDEM TARTRATE 10 MG TABLET PO PRN
[2017-12-29 18:46] LABS: BASOPHILS % (AUTO) 0.3 % (0.0-2.0); EOSINOPHILS % (AUTO) 6.5 % (1.0-6.0); HEMATOCRIT 37.6 % (41-53); HEMOGLOBIN 12.8 g/dL (13.5-17.5); LYMPHOCYTES # (AUTO) 1.9 K/uL (1.0-4.8); LYMPHOCYTES % (AUTO) 31.1 % (22.0-44.0); MEAN CORPUSCULAR HEMOGLOBIN 31.1 pg (26.0-34.0); MEAN CORPUSCULAR HGB CONC 34.1 G/dL (31.0-37.0); MEAN CORPUSCULAR VOLUME 91 fL (80-100); MONOCYTES # (AUTO) 0.7 K/uL (0.1-1.0); NEUTROPHILS # (AUTO) 3.1 K/uL (1.8-7.7); NEUTROPHILS % (AUTO) 51.1 % (40.0-70.0); PLATELET COUNT (AUTO) 285 K/uL (150-450); RED BLOOD CELL COUNT(AUTO) 4.13 MIL/uL (4.50-5.90); RED CELL DISTRIBUTION WIDTH 14.1 % (11.5-14.5)
[2017-12-29 18:50] LABS: ANION GAP 6 mmol/L (8-16); CALCIUM, TOTAL 8.9 mg/dL (8.8-10.5); CARBON DIOXIDE 31 mmol/L (22-29); CHLORIDE 104 mmol/L (98-107); CREATININE 1.08 mg/dL (0.60-1.30); GLOMERULAR FILTR. RATE CALC > 60 mL/min (>60); GLUCOSE,RANDOM 95 mg/dL (70-110); POTASSIUM 3.9 mmol/L (3.5-5.1); SODIUM SERUM 141 mmol/L (136-145); UREA NITROGEN, BLOOD 17 mg/dL (7-18)
[2017-12-29 18:57] LABS: ALANINE AMINOTRANSFERASE 97 U/L (12-78); ALBUMIN 3.3 g/dL (3.4-5.0); ALKALINE PHOSPHATASE 58 U/L (46-116); ASPARTATE AMINOTRANSFERASE 49 U/L (15-37); BILIRUBIN,TOTAL 0.3 mg/dL (0.1-1.0); TOTAL PROTEIN, SERUM 7.1 g/dL (6.4-8.2)
[2017-12-29] MEDS ORDERED: PNEUMOCOCCAL VACCINE POLYVALENT 0.5 ML VIAL [PPSV23] IM ONE (20:30)
[2017-12-29] MEDS ORDERED: HALOPERIDOL LACTATE 5 MG/ML VIAL IM ONE (20:45)
[2017-12-29] MEDS ORDERED: LORazepam 2 MG/ML VIAL IM ONE (20:45)
[2017-12-29] MEDS ORDERED: DiphenhydrAMINE HCL 50 MG/ML VIAL IM ONE (20:45)
[2017-12-29 21:50] LABS: CKMB RELATIVE INDEX 3.4 % (0.0-4.0); CREATINE KINASE MB 6.8 ng/mL (0-5); CREATINE KINASE, TOTAL 200 U/L (39-308)
[2017-12-29] MEDS ORDERED: LIDOCAINE HCL 2% VISCOUS 15 ML SOLUTION UDCUP TP ONE (22:00)
[2017-12-29] MEDS ORDERED: SULFAMETHOX/TRIMETH DS 800-160 MG/TABLET PO ONE (22:30)
[2017-12-29 23:54] VITALS: BP 129/73
[2017-12-30 06:53] LABS: EOSINOPHILS % (AUTO) 6.7 % (1.0-6.0); HEMATOCRIT 41.1 % (41-53); HEMOGLOBIN 13.8 g/dL (13.5-17.5); LYMPHOCYTES # (AUTO) 1.8 K/uL (1.0-4.8); LYMPHOCYTES % (AUTO) 28.7 % (22.0-44.0); MEAN CORPUSCULAR HGB CONC 33.7 G/dL (31.0-37.0); MEAN CORPUSCULAR VOLUME 92 fL (80-100); MONOCYTES # (AUTO) 0.8 K/uL (0.1-1.0); MONOCYTES % (AUTO) 12.3 % (2.0-9.0); NEUTROPHILS # (AUTO) 3.3 K/uL (1.8-7.7); NEUTROPHILS % (AUTO) 51.3 % (40.0-70.0); PLATELET COUNT (AUTO) 298 K/uL (150-450); RED BLOOD CELL COUNT(AUTO) 4.47 MIL/uL (4.50-5.90); RED CELL DISTRIBUTION WIDTH 13.9 % (11.5-14.5)
[2017-12-30 07:16] LABS: HEMOGLOBIN A1C 6.2 % (4.5-6.2)
[2017-12-30 07:31] LABS: ALANINE AMINOTRANSFERASE 103 U/L (12-78); ALBUMIN 3.3 g/dL (3.4-5.0); ALKALINE PHOSPHATASE 60 U/L (46-116); ANION GAP 8 mmol/L (8-16); ASPARTATE AMINOTRANSFERASE 56 U/L (15-37); BILIRUBIN,TOTAL 0.4 mg/dL (0.1-1.0); CALCIUM, TOTAL 8.6 mg/dL (8.8-10.5); CARBON DIOXIDE 27 mmol/L (22-29); CHLORIDE 104 mmol/L (98-107); CHOL/HDL RATIO 2.3 (4.2-7.3); CHOLESTEROL 128 mg/dL (131-200); CREATININE 0.93 mg/dL (0.60-1.30); FREE T4 (FREE THYROXINE) 1.04 ng/dL (0.76-1.46); GLOMERULAR FILTR. RATE CALC > 60 mL/min (>60); GLUCOSE,RANDOM 83 mg/dL (70-110); HDL CHOLESTEROL 56 mg/dL (40-60); LDL CHOL (CALC.) 66 mg/dL (0-130); POTASSIUM 3.7 mmol/L (3.5-5.1); SODIUM SERUM 139 mmol/L (136-145); THYROID STIMULATING HORMONE 3.78 uIU/mL (0.36-3.74); TOTAL PROTEIN, SERUM 7.3 g/dL (6.4-8.2); TRIGLYCERIDES 32 mg/dL (15-150); UREA NITROGEN, BLOOD 17 mg/dL (7-18)
[2017-12-30] MEDS: DIVALPROEX SODIUM 500 MG DR TABLET PO SCH (16:59)
[2017-12-30] MEDS: GABAPENTIN 300 MG CAPSULE PO SCH (16:59)
[2017-12-30 17:00] VITALS: BP 117/62
[2017-12-30] MEDS ORDERED: IBUPROFEN 400 MG TABLET PO PRN (20:15)
[2017-12-30] MEDS: QUEtiapine FUMARATE 200 MG TABLET PO SCH (20:20)
[2017-12-31] MEDS: SERTRALINE HCL 100 MG TABLET PO SCH (10:39)
[2017-12-31] MEDS: DIVALPROEX SODIUM 500 MG DR TABLET PO SCH ×2 (10:39→17:55)
[2017-12-31] MEDS: GABAPENTIN 300 MG CAPSULE PO SCH ×3 (10:39→17:55)
[2017-12-31] MEDS: QUEtiapine FUMARATE 200 MG TABLET PO SCH ×2 (10:39→20:49)
[2017-12-31 18:31] VITALS: BP 115/78
[2018-01-01 07:56] LABS: HEMOGLOBIN A1C 6.2 % (4.5-6.2)
[2018-01-01 08:17] LABS: THYROID STIMULATING HORMONE 1.31 uIU/mL (0.36-3.74)
[2018-01-01] MEDS: DIVALPROEX SODIUM 500 MG DR TABLET PO SCH ×2 (09:39→17:10)
[2018-01-01] MEDS: QUEtiapine FUMARATE 200 MG TABLET PO SCH ×2 (09:39→21:08)
[2018-01-01] MEDS: SERTRALINE HCL 100 MG TABLET PO SCH (09:39)
[2018-01-01] MEDS: GABAPENTIN 300 MG CAPSULE PO SCH ×3 (09:39→17:10)
[2018-01-02 08:45] VITALS: BP 124/77
[2018-01-02] MEDS: DIVALPROEX SODIUM 500 MG DR TABLET PO SCH ×2 (10:23→17:56)
[2018-01-02] MEDS: GABAPENTIN 300 MG CAPSULE PO SCH ×3 (10:23→17:56)
[2018-01-02] MEDS: SERTRALINE HCL 100 MG TABLET PO SCH (10:23)
[2018-01-02] MEDS: QUEtiapine FUMARATE 200 MG TABLET PO SCH ×2 (10:23→20:38)
[2018-01-02 18:22] VITALS: BP 112/70
[2018-01-03 08:28] VITALS: BP 97/69
[2018-01-03] MEDS: GABAPENTIN 300 MG CAPSULE PO SCH ×3 (11:33→17:29)
[2018-01-03] MEDS: DIVALPROEX SODIUM 500 MG DR TABLET PO SCH ×2 (11:33→17:30)
[2018-01-03] MEDS: QUEtiapine FUMARATE 200 MG TABLET PO SCH ×2 (11:34→20:18)
[2018-01-03] MEDS: SERTRALINE HCL 100 MG TABLET PO SCH (11:34)
[2018-01-03 16:46] VITALS: BP 112/71
[2018-01-04] MEDS: QUEtiapine FUMARATE 200 MG TABLET PO SCH ×2 (09:34→20:16)
[2018-01-04] MEDS: SERTRALINE HCL 100 MG TABLET PO SCH (09:34)
[2018-01-04] MEDS: GABAPENTIN 300 MG CAPSULE PO SCH ×3 (09:34→17:07)
[2018-01-04] MEDS: DIVALPROEX SODIUM 500 MG DR TABLET PO SCH ×2 (09:34→17:07)
[2018-01-05] MEDS: QUEtiapine FUMARATE 200 MG TABLET PO SCH ×3 (09:00→20:16)
[2018-01-05] MEDS: DIVALPROEX SODIUM 500 MG DR TABLET PO SCH ×3 (09:00→16:38)
[2018-01-05] MEDS: SERTRALINE HCL 100 MG TABLET PO SCH ×2 (09:00→12:47)
[2018-01-05] MEDS: GABAPENTIN 300 MG CAPSULE PO SCH ×3 (09:00→16:38)
[2018-01-05 09:31] VITALS: BP 110/68
[2018-01-06] MEDS: DIVALPROEX SODIUM 500 MG DR TABLET PO SCH (08:45)
[2018-01-06] MEDS: GABAPENTIN 300 MG CAPSULE PO SCH (08:45)
[2018-01-06] MEDS: SERTRALINE HCL 100 MG TABLET PO SCH (08:46)
[2018-01-06] MEDS: QUEtiapine FUMARATE 200 MG TABLET PO SCH (08:46)
[2018-01-06 11:11] VITALS: BP 109/62
== END 2018-01-06 12:00 | disposition home or self-care (01) | DRG 750 ==
LOC: EDSTATUS 16:04 → EMS 16:55 → 3EI 23:00
PROVIDERS: ADMIT Psychiatry & Neurology Child & Adolescent Psychiatry; ATTEND Psychiatry & Neurology Child & Adolescent Psychiatry
DX: F25.1 Schizoaffective disorder, depressive type (principal); R45.851 Suicidal ideations; Z91.19 Patient's noncompliance with other medical treatment and regimen; Z59.0 Homelessness; J45.909 Unspecified asthma, uncomplicated; Z28.21 Immunization not carried out because of patient refusal; D64.9 Anemia, unspecified; F10.10 Alcohol abuse, uncomplicated; F19.90 Other psychoactive substance use, unspecified, uncomplicated; F41.9 Anxiety disorder, unspecified; L03.019 Cellulitis of unspecified finger; F17.210 Nicotine dependence, cigarettes, uncomplicated; Z91.5 Personal history of self-harm; Z71.41 Alcohol abuse counseling and surveillance of alcoholic; Z71.6 Tobacco abuse counseling; Z88.0 Allergy status to penicillin; Z88.6 Allergy status to analgesic agent
CPT/HCPCS: 83036; 84436; 84439; 84443; 87081; 96372; 99285; G0480; J1200; J1630; J2060

== ENCOUNTER 2018-02-06 11:36 | Inpatient (IN) | payer MEDICAID ==
[~2018-02-06] VITALS: Ht 172.7 cm; Wt 74.8 kg
[~2018-02-06 11:36] MED LIST changes: -CLIN300C3 PO; -HALOPERIDOL 5 MG TABLET PO PRN; -LORazepam 2 MG TABLET PO PRN; -ZOLPIDEM TARTRATE 10 MG TABLET PO PRN
[2018-02-06] MEDS ORDERED: SODIUM CHLORIDE 0.9% 1,000 ML IV ONE (12:45)
[2018-02-06 13:12] LABS: EOSINOPHILS % (AUTO) 3.4 % (1.0-6.0); HEMATOCRIT 41.9 % (41-53); HEMOGLOBIN 14.2 g/dL (13.5-17.5); LYMPHOCYTES # (AUTO) 1.6 K/uL (1.0-4.8); LYMPHOCYTES % (AUTO) 20.5 % (22.0-44.0); MEAN CORPUSCULAR HEMOGLOBIN 30.5 pg (26.0-34.0); MEAN CORPUSCULAR HGB CONC 33.9 G/dL (31.0-37.0); MEAN CORPUSCULAR VOLUME 90 fL (80-100); MONOCYTES % (AUTO) 11.9 % (2.0-9.0); NEUTROPHILS # (AUTO) 5.1 K/uL (1.8-7.7); NEUTROPHILS % (AUTO) 63.2 % (40.0-70.0); PLATELET COUNT (AUTO) 284 K/uL (150-450); RED BLOOD CELL COUNT(AUTO) 4.67 MIL/uL (4.50-5.90); RED CELL DISTRIBUTION WIDTH 14.1 % (11.5-14.5)
[2018-02-06 13:22] LABS: ANION GAP 6 mmol/L (8-16); CARBON DIOXIDE 30 mmol/L (22-29); CHLORIDE 98 mmol/L (98-107); CREATININE 0.82 mg/dL (0.60-1.30); GLOMERULAR FILTR. RATE CALC > 60 mL/min (>60); GLUCOSE,RANDOM 88 mg/dL (70-110); POTASSIUM 3.7 mmol/L (3.5-5.1); SODIUM SERUM 134 mmol/L (136-145); UREA NITROGEN, BLOOD 9 mg/dL (7-18)
[2018-02-06 13:28] LABS: ALANINE AMINOTRANSFERASE 97 U/L (12-78); ALBUMIN 3.4 g/dL (3.4-5.0); ALKALINE PHOSPHATASE 54 U/L (46-116); ASPARTATE AMINOTRANSFERASE 69 U/L (15-37); BILIRUBIN,TOTAL 0.8 mg/dL (0.1-1.0); TOTAL PROTEIN, SERUM 8.5 g/dL (6.4-8.2)
[2018-02-06 13:51] LABS: AMPHET/METH SCREEN,URINE POSITIVE (NEGATIVE); BARBITURATE SCREEN, URINE NEGATIVE (NEGATIVE); BENZODIAZEPINES SCREEN,URINE NEGATIVE (NEGATIVE); CANNABINOID SCREEN,URINE NEGATIVE (NEGATIVE); COCAINE SCREEN,URINE NEGATIVE (NEGATIVE); METHADONE SCREEN, URINE NEGATIVE (NEGATIVE); OPIATE SCREEN,URINE POSITIVE (NEGATIVE)
[2018-02-06 13:52] LABS: PHENCYCLIDINE SCREEN,URINE NEGATIVE (NEGATIVE)
[2018-02-06] MEDS ORDERED: QUEtiapine FUMARATE 100 MG TABLET PO ONE (14:30)
[2018-02-06] MEDS ORDERED: IBUPROFEN 400 MG TABLET PO ONE (14:45)
[2018-02-06] MEDS ORDERED: ZOLPIDEM TARTRATE 10 MG TABLET PO PRN (14:45)
[2018-02-06] MEDS ORDERED: HALOPERIDOL 5 MG TABLET PO PRN (14:45)
[2018-02-06 15:06] LABS: APPEARANCE,URINE CLEAR (CLEAR); BILIRUBIN,URINE NEGATIVE (NEGATIVE); GLUCOSE, URINE (UA) NEGATIVE (NEGATIVE); KETONES,URINE 15 mg/dL (NEGATIVE); LEUKOCYTE ESTERASE ,URINE NEGATIVE (NEGATIVE); NITRATE,URINE NEGATIVE (NEGATIVE); OCCULT BLOOD,URINE NEGATIVE (NEGATIVE); PROTEIN,URINE NEGATIVE (NEGATIVE)
[2018-02-06 17:38] VITALS: BP 100/65
[2018-02-06] MEDS: DIVALPROEX SODIUM 500 MG DR TABLET PO SCH (17:48)
[2018-02-06] MEDS: GABAPENTIN 300 MG CAPSULE PO SCH (17:48)
[2018-02-06] MEDS: LORazepam 2 MG TABLET PO PRN (17:48)
[2018-02-06] MEDS ORDERED: PNEUMOCOCCAL VACCINE POLYVALENT 0.5 ML VIAL [PPSV23] IM ONE (18:00)
[2018-02-06] MEDS: CEPHALEXIN MONOHYDRATE 500 MG CAPSULE PO SCH (20:39)
[2018-02-06] MEDS: QUEtiapine FUMARATE 200 MG TABLET PO SCH (20:39)
[2018-02-07] MEDS ORDERED: ONDANSETRON HCL 4 MG TABLET PO PRN (07:15)
[2018-02-07] MEDS ORDERED: LOPERAMIDE HCL 2 MG CAPSULE PO PRN (07:15)
[2018-02-07] MEDS ORDERED: MAGNESIUM HYDROXIDE SUSPENSION 30 ML UDCUP PO PRN (07:15)
[2018-02-07] MEDS ORDERED: MAG HYDROX/AL HYDROX/SIMETH ES 30 ML SUSPENSION UDCUP PO PRN (07:15)
[2018-02-07] MEDS ORDERED: ALBUTEROL SULFATE HFA 90 MCG/PUFF 8 GM INHALER IH PRN (07:15)
[2018-02-07] MEDS ORDERED: PETROLATUM,WHITE 71 GM JELLY TP PRN (07:15)
[2018-02-07] MEDS ORDERED: BACITRACIN 28.4 GM OINTMENT TP PRN (07:15)
[2018-02-07] MEDS ORDERED: IBUPROFEN 600 MG TABLET PO PRN (07:15)
[2018-02-07] MEDS ORDERED: CloNIDine HCL 0.1 MG TABLET PO PRN (07:15)
[2018-02-07] MEDS ORDERED: BENZOCAINE/MENTHOL LOZENGE MM PRN (07:15)
[2018-02-07 08:25] VITALS: BP 99/78
[2018-02-07] MEDS: OMEPRAZOLE 20 MG CAPSULE PO SCH (08:48)
[2018-02-07] MEDS: QUEtiapine FUMARATE 200 MG TABLET PO SCH ×2 (08:48→20:25)
[2018-02-07] MEDS: GABAPENTIN 300 MG CAPSULE PO SCH ×3 (08:48→17:17)
[2018-02-07] MEDS: CEPHALEXIN MONOHYDRATE 500 MG CAPSULE PO SCH ×4 (08:48→20:25)
[2018-02-07] MEDS: DOCUSATE SODIUM 100 MG CAPSULE PO SCH (08:48)
[2018-02-07] MEDS: SERTRALINE HCL 100 MG TABLET PO SCH (08:49)
[2018-02-07] MEDS: DIVALPROEX SODIUM 500 MG DR TABLET PO SCH ×2 (08:49→17:17)
[2018-02-07 16:14] VITALS: BP 106/62
[2018-02-08 03:22] VITALS: BP 118/81
[2018-02-08 08:13] VITALS: BP 104/66
[2018-02-08] MEDS: GABAPENTIN 300 MG CAPSULE PO SCH ×3 (08:19→16:57)
[2018-02-08] MEDS: SERTRALINE HCL 100 MG TABLET PO SCH (08:19)
[2018-02-08] MEDS: DOCUSATE SODIUM 100 MG CAPSULE PO SCH (08:19)
[2018-02-08] MEDS: CEPHALEXIN MONOHYDRATE 500 MG CAPSULE PO SCH ×4 (08:19→20:50)
[2018-02-08] MEDS: DIVALPROEX SODIUM 500 MG DR TABLET PO SCH ×2 (08:19→16:58)
[2018-02-08] MEDS: QUEtiapine FUMARATE 200 MG TABLET PO SCH ×2 (08:19→20:50)
[2018-02-08] MEDS: OMEPRAZOLE 20 MG CAPSULE PO SCH (08:19)
[2018-02-08 16:05] VITALS: BP 111/66
[2018-02-08] MEDS: LORazepam 2 MG TABLET PO PRN (16:58)
[2018-02-08] MEDS ORDERED: BENZOCAINE/MENTHOL LOZENGE MM PRN (18:15)
[2018-02-09 01:40] VITALS: BP 109/63
[2018-02-09 08:11] VITALS: BP 114/71
[2018-02-09] MEDS: CEPHALEXIN MONOHYDRATE 500 MG CAPSULE PO SCH ×4 (09:25→20:17)
[2018-02-09] MEDS: DOCUSATE SODIUM 100 MG CAPSULE PO SCH (09:25)
[2018-02-09] MEDS: GABAPENTIN 300 MG CAPSULE PO SCH ×3 (09:26→16:22)
[2018-02-09] MEDS: QUEtiapine FUMARATE 200 MG TABLET PO SCH ×2 (09:26→20:17)
[2018-02-09] MEDS: DIVALPROEX SODIUM 500 MG DR TABLET PO SCH ×2 (09:26→16:22)
[2018-02-09] MEDS: OMEPRAZOLE 20 MG CAPSULE PO SCH (09:26)
[2018-02-09] MEDS: SERTRALINE HCL 100 MG TABLET PO SCH (09:30)
[2018-02-10 08:07] VITALS: BP 103/62
[2018-02-10] MEDS: DOCUSATE SODIUM 100 MG CAPSULE PO SCH (09:04)
[2018-02-10] MEDS: DIVALPROEX SODIUM 500 MG DR TABLET PO SCH ×2 (09:04→17:25)
[2018-02-10] MEDS: CEPHALEXIN MONOHYDRATE 500 MG CAPSULE PO SCH ×4 (09:05→20:39)
[2018-02-10] MEDS: QUEtiapine FUMARATE 200 MG TABLET PO SCH ×2 (09:05→20:39)
[2018-02-10] MEDS: SERTRALINE HCL 100 MG TABLET PO SCH (09:05)
[2018-02-10] MEDS: OMEPRAZOLE 20 MG CAPSULE PO SCH (09:05)
[2018-02-10] MEDS: GABAPENTIN 300 MG CAPSULE PO SCH ×3 (09:05→17:25)
[2018-02-10 17:40] VITALS: BP 110/64
[2018-02-10] MEDS: LORazepam 2 MG TABLET PO PRN (20:39)
[2018-02-11 06:23] VITALS: BP 110/63
[2018-02-11 08:07] VITALS: BP 106/60
[2018-02-11] MEDS: DIVALPROEX SODIUM 500 MG DR TABLET PO SCH (08:43)
[2018-02-11] MEDS: CEPHALEXIN MONOHYDRATE 500 MG CAPSULE PO SCH ×2 (08:43→12:23)
[2018-02-11] MEDS: GABAPENTIN 300 MG CAPSULE PO SCH ×2 (08:43→12:23)
[2018-02-11] MEDS: DOCUSATE SODIUM 100 MG CAPSULE PO SCH (08:43)
[2018-02-11] MEDS: OMEPRAZOLE 20 MG CAPSULE PO SCH (08:43)
[2018-02-11] MEDS ORDERED: SERTRALINE HCL 100 MG TABLET PO SCH (09:00)
[2018-02-11] MEDS ORDERED: QUEtiapine FUMARATE 200 MG TABLET PO SCH (09:00)
== END 2018-02-11 15:30 | disposition home or self-care (01) | DRG 750 ==
LOC: EMS 11:37 → B3A 16:15
PROVIDERS: ADMIT Psychiatry & Neurology Child & Adolescent Psychiatry; ATTEND Psychiatry & Neurology Child & Adolescent Psychiatry
DX: F25.9 Schizoaffective disorder, unspecified (principal); E87.1 Hypo-osmolality and hyponatremia; R45.851 Suicidal ideations; K75.9 Inflammatory liver disease, unspecified; F15.10 Other stimulant abuse, uncomplicated; F17.200 Nicotine dependence, unspecified, uncomplicated; F41.9 Anxiety disorder, unspecified; G47.00 Insomnia, unspecified; J44.9 Chronic obstructive pulmonary disease, unspecified; K21.9 Gastro-esophageal reflux disease without esophagitis; F32.9 Major depressive disorder, single episode, unspecified; K59.00 Constipation, unspecified; L03.90 Cellulitis, unspecified; M19.90 Unspecified osteoarthritis, unspecified site; Z59.0 Homelessness; Z88.0 Allergy status to penicillin; Z79.899 Other long term (current) drug therapy; Z28.21 Immunization not carried out because of patient refusal
CPT/HCPCS: 80074; 84295; 87081; 99285; G0480

== ENCOUNTER 2018-04-07 15:51 | Emergency (ER) | payer MEDICAID ==
[~2018-04-07] VITALS: Ht 177.8 cm; Wt 70.5 kg
[2018-04-07 19:26] LABS: AMPHET/METH SCREEN,URINE POSITIVE (NEGATIVE); BARBITURATE SCREEN, URINE NEGATIVE (NEGATIVE); BENZODIAZEPINES SCREEN,URINE NEGATIVE (NEGATIVE); CANNABINOID SCREEN,URINE NEGATIVE (NEGATIVE); COCAINE SCREEN,URINE POSITIVE (NEGATIVE); METHADONE SCREEN, URINE NEGATIVE (NEGATIVE); OPIATE SCREEN,URINE POSITIVE (NEGATIVE)
[2018-04-07 19:27] LABS: PHENCYCLIDINE SCREEN,URINE NEGATIVE (NEGATIVE)
[2018-04-07 19:42] LABS: BASOPHILS % (AUTO) 0.7 % (0.0-2.0); EOSINOPHILS % (AUTO) 3.7 % (1.0-6.0); HEMATOCRIT 33.2 % (41-53); HEMOGLOBIN 11.5 g/dL (13.5-17.5); LYMPHOCYTES # (AUTO) 1.8 K/uL (1.0-4.8); LYMPHOCYTES % (AUTO) 25.3 % (22.0-44.0); MEAN CORPUSCULAR HEMOGLOBIN 30.2 pg (26.0-34.0); MEAN CORPUSCULAR HGB CONC 34.7 G/dL (31.0-37.0); MEAN CORPUSCULAR VOLUME 87 fL (80-100); MONOCYTES # (AUTO) 0.6 K/uL (0.1-1.0); MONOCYTES % (AUTO) 8.9 % (2.0-9.0); NEUTROPHILS # (AUTO) 4.4 K/uL (1.8-7.7); NEUTROPHILS % (AUTO) 61.4 % (40.0-70.0); PLATELET COUNT (AUTO) 248 K/uL (150-450); RED BLOOD CELL COUNT(AUTO) 3.81 MIL/uL (4.50-5.90); RED CELL DISTRIBUTION WIDTH 14.5 % (11.5-14.5)
[2018-04-07 19:59] LABS: ANION GAP 7 mmol/L (8-16); CALCIUM, TOTAL 8.3 mg/dL (8.8-10.5); CARBON DIOXIDE 27 mmol/L (22-29); CHLORIDE 103 mmol/L (98-107); GLOMERULAR FILTR. RATE CALC > 60 mL/min (>60); GLUCOSE,RANDOM 93 mg/dL (70-110); SODIUM SERUM 137 mmol/L (136-145); UREA NITROGEN, BLOOD 17 mg/dL (7-18)
[2018-04-07 20:05] LABS: ALANINE AMINOTRANSFERASE 66 U/L (12-78); ALBUMIN 3.1 g/dL (3.4-5.0); ALKALINE PHOSPHATASE 68 U/L (46-116); ASPARTATE AMINOTRANSFERASE 46 U/L (15-37); BILIRUBIN,TOTAL 0.3 mg/dL (0.1-1.0); TOTAL PROTEIN, SERUM 7.4 g/dL (6.4-8.2)
[2018-04-07 20:32] LABS: VALPROIC ACID < 3 mcg/mL (50-100)
[2018-04-08 00:16] VITALS: BP 117/65
== END 2018-04-08 01:36 | disposition home or self-care (01) ==
LOC: EMS 15:54
DX: F29 Unspecified psychosis not due to a substance or known physiological condition (principal); F15.10 Other stimulant abuse, uncomplicated; F14.10 Cocaine abuse, uncomplicated; F11.10 Opioid abuse, uncomplicated; F17.210 Nicotine dependence, cigarettes, uncomplicated; J45.909 Unspecified asthma, uncomplicated; F20.9 Schizophrenia, unspecified; F31.9 Bipolar disorder, unspecified; F12.10 Cannabis abuse, uncomplicated; Z79.899 Other long term (current) drug therapy; Z88.0 Allergy status to penicillin; Z88.8 Allergy status to other drugs, medicaments and biological substances
CPT/HCPCS: 36415; 80053; 80164; 80307; 85025; 99285; G0480

== ENCOUNTER 2018-04-08 19:05 | Emergency (ER) | payer MEDICAID ==
[~2018-04-08] VITALS: Ht 175.3 cm; Wt 68.2 kg
[2018-04-08 19:34] LABS: HEMATOCRIT 34.3 % (41-53); HEMOGLOBIN 11.7 g/dL (13.5-17.5); MEAN CORPUSCULAR HEMOGLOBIN 29.8 pg (26.0-34.0); MEAN CORPUSCULAR HGB CONC 34.2 G/dL (31.0-37.0); MEAN CORPUSCULAR VOLUME 87 fL (80-100); PLATELET COUNT (AUTO) 235 K/uL (150-450); RED BLOOD CELL COUNT(AUTO) 3.94 MIL/uL (4.50-5.90); RED CELL DISTRIBUTION WIDTH 14.7 % (11.5-14.5)
[2018-04-08 19:43] LABS: ANION GAP 10 mmol/L (8-16); CALCIUM, TOTAL 8.1 mg/dL (8.8-10.5); CARBON DIOXIDE 26 mmol/L (22-29); CHLORIDE 97 mmol/L (98-107); GLOMERULAR FILTR. RATE CALC > 60 mL/min (>60); GLUCOSE,RANDOM 95 mg/dL (70-110); POTASSIUM 3.9 mmol/L (3.5-5.1); SODIUM SERUM 133 mmol/L (136-145); UREA NITROGEN, BLOOD 18 mg/dL (7-18)
[2018-04-08 19:49] LABS: ALANINE AMINOTRANSFERASE 83 U/L (12-78); ALBUMIN 3.1 g/dL (3.4-5.0); ALKALINE PHOSPHATASE 84 U/L (46-116); ASPARTATE AMINOTRANSFERASE 72 U/L (15-37); BILIRUBIN,TOTAL 0.7 mg/dL (0.1-1.0); TOTAL PROTEIN, SERUM 7.4 g/dL (6.4-8.2)
[2018-04-08 20:44] LABS: BAND NEUTROPHILS % (MANUAL) 28 % (0-5); LYMPHOCYTES % (MANUAL) 1 % (22-44); MONOCYTES % (MANUAL) 3 % (2-9); SEGMENTED NEUTROPHILS % 68 % (40-70)
[2018-04-08 22:00] LABS: AMPHET/METH SCREEN,URINE POSITIVE (NEGATIVE); BARBITURATE SCREEN, URINE NEGATIVE (NEGATIVE); BENZODIAZEPINES SCREEN,URINE NEGATIVE (NEGATIVE); CANNABINOID SCREEN,URINE NEGATIVE (NEGATIVE); COCAINE SCREEN,URINE POSITIVE (NEGATIVE); METHADONE SCREEN, URINE NEGATIVE (NEGATIVE); OPIATE SCREEN,URINE POSITIVE (NEGATIVE)
[2018-04-08 22:03] LABS: PHENCYCLIDINE SCREEN,URINE NEGATIVE (NEGATIVE)
[2018-04-08 22:54] LABS: VALPROIC ACID < 3 mcg/mL (50-100)
[2018-04-08 23:45] LABS: APPEARANCE,URINE CLEAR (CLEAR); BILIRUBIN,URINE NEGATIVE (NEGATIVE); GLUCOSE, URINE (UA) NEGATIVE (NEGATIVE); KETONES,URINE NEGATIVE (NEGATIVE); LEUKOCYTE ESTERASE ,URINE NEGATIVE (NEGATIVE); NITRATE,URINE NEGATIVE (NEGATIVE); OCCULT BLOOD,URINE NEGATIVE (NEGATIVE); PH,URINE 6.5 (5.0-8.0); PROTEIN,URINE NEGATIVE (NEGATIVE); UROBILINOGEN,URINE 0.2 mg/dL (<=1.0)
[2018-04-09 04:25] LABS: BASOPHILS % (AUTO) 0.4 % (0.0-2.0); EOSINOPHILS % (AUTO) 1.4 % (1.0-6.0); HEMATOCRIT 33.4 % (41-53); HEMOGLOBIN 11.4 g/dL (13.5-17.5); LYMPHOCYTES # (AUTO) 2.2 K/uL (1.0-4.8); LYMPHOCYTES % (AUTO) 12.4 % (22.0-44.0); MEAN CORPUSCULAR HEMOGLOBIN 29.4 pg (26.0-34.0); MEAN CORPUSCULAR VOLUME 87 fL (80-100); MONOCYTES # (AUTO) 1.3 K/uL (0.1-1.0); MONOCYTES % (AUTO) 7.1 % (2.0-9.0); NEUTROPHILS % (AUTO) 78.7 % (40.0-70.0); PLATELET COUNT (AUTO) 221 K/uL (150-450); RED BLOOD CELL COUNT(AUTO) 3.87 MIL/uL (4.50-5.90); RED CELL DISTRIBUTION WIDTH 14.8 % (11.5-14.5)
[2018-04-09 04:27] LABS: ANION GAP 7 mmol/L (8-16); CALCIUM, TOTAL 7.8 mg/dL (8.8-10.5); CARBON DIOXIDE 28 mmol/L (22-29); CHLORIDE 105 mmol/L (98-107); GLOMERULAR FILTR. RATE CALC > 60 mL/min (>60); GLUCOSE,RANDOM 91 mg/dL (70-110); POTASSIUM 3.6 mmol/L (3.5-5.1); SODIUM SERUM 140 mmol/L (136-145); UREA NITROGEN, BLOOD 17 mg/dL (7-18)
[2018-04-09 04:33] LABS: ALANINE AMINOTRANSFERASE 70 U/L (12-78); ALBUMIN 2.7 g/dL (3.4-5.0); ALKALINE PHOSPHATASE 94 U/L (46-116); ASPARTATE AMINOTRANSFERASE 54 U/L (15-37); BILIRUBIN,TOTAL 0.4 mg/dL (0.1-1.0); TOTAL PROTEIN, SERUM 6.9 g/dL (6.4-8.2)
[2018-04-09 05:10] VITALS: BP 100/58
[2018-04-09] MEDS ORDERED: SULFAMETHOX/TRIMETH DS 800-160 MG/TABLET PO ONE (05:30)
== END 2018-04-09 05:31 | disposition home or self-care (01) ==
LOC: EMS 19:06
DX: F25.9 Schizoaffective disorder, unspecified (principal); K70.30 Alcoholic cirrhosis of liver without ascites; B19.20 Unspecified viral hepatitis C without hepatic coma; L02.511 Cutaneous abscess of right hand; F15.10 Other stimulant abuse, uncomplicated; F19.10 Other psychoactive substance abuse, uncomplicated; F14.10 Cocaine abuse, uncomplicated; J45.909 Unspecified asthma, uncomplicated; F17.210 Nicotine dependence, cigarettes, uncomplicated; Z88.0 Allergy status to penicillin; Z59.0 Homelessness
CPT/HCPCS: 36415; 71045; 80053; 80164; 80307; 81003; 85025; 99285; 99406; G0480

== ENCOUNTER 2019-06-22 06:01 | Inpatient (IN) | payer MEDICAID ==
[~2019-06-22] VITALS: Ht 175.3 cm; Wt 70.5 kg
[2019-06-22] MEDS ORDERED: LORazepam 2 MG/ML VIAL IM ONE (09:45)
[2019-06-22] MEDS ORDERED: HALOPERIDOL LACTATE 5 MG/ML VIAL IM ONE (09:45)
[2019-06-22] MEDS ORDERED: ZOLPIDEM TARTRATE 10 MG TABLET PO PRN (10:00)
[2019-06-22 10:15] LABS: BASOPHILS % (AUTO) 1.2 % (0.0-2.0); EOSINOPHILS % (AUTO) 4.2 % (1.0-6.0); HEMATOCRIT 33.5 % (41-53); HEMOGLOBIN 10.7 g/dL (13.5-17.5); LYMPHOCYTES # (AUTO) 1.1 K/uL (1.0-4.8); LYMPHOCYTES % (AUTO) 17.3 % (22.0-44.0); MEAN CORPUSCULAR HEMOGLOBIN 27.6 pg (26.0-34.0); MEAN CORPUSCULAR HGB CONC 31.9 G/dL (31.0-37.0); MEAN CORPUSCULAR VOLUME 87 fL (80-100); MONOCYTES # (AUTO) 0.4 K/uL (0.1-1.0); MONOCYTES % (AUTO) 6.6 % (2.0-9.0); NEUTROPHILS # (AUTO) 4.4 K/uL (1.8-7.7); NEUTROPHILS % (AUTO) 70.7 % (40.0-70.0); PLATELET COUNT (AUTO) 333 K/uL (150-450); RED BLOOD CELL COUNT(AUTO) 3.88 MIL/uL (4.50-5.90); RED CELL DISTRIBUTION WIDTH 16.4 % (11.5-14.5)
[2019-06-22 10:43] LABS: ANION GAP 13 mmol/L (8-16); CALCIUM, TOTAL 8.6 mg/dL (8.8-10.5); CARBON DIOXIDE 25 mmol/L (22-29); CHLORIDE 97 mmol/L (98-107); CREATININE 0.84 mg/dL (0.60-1.30); GLOMERULAR FILTR. RATE CALC > 60 mL/min (>60); GLUCOSE,RANDOM 111 mg/dL (70-110); POTASSIUM 3.1 mmol/L (3.5-5.1); SODIUM SERUM 135 mmol/L (136-145); UREA NITROGEN, BLOOD 19 mg/dL (7-18)
[2019-06-22 10:49] LABS: ALANINE AMINOTRANSFERASE 77 U/L (12-78); ALKALINE PHOSPHATASE 55 U/L (46-116); ASPARTATE AMINOTRANSFERASE 57 U/L (15-37); BILIRUBIN,TOTAL 0.4 mg/dL (0.1-1.0); TOTAL PROTEIN, SERUM 7.5 g/dL (6.4-8.2); VALPROIC ACID < 3 mcg/mL (50-100)
[2019-06-22 13:22] VITALS: BP 105/71
[2019-06-22] MEDS ORDERED: DOCUSATE SODIUM 100 MG CAPSULE PO PRN (14:15)
[2019-06-22] MEDS ORDERED: CloNIDine HCL 0.1 MG TABLET PO PRN (14:15)
[2019-06-22] MEDS ORDERED: LOPERAMIDE HCL 2 MG CAPSULE PO PRN (14:15)
[2019-06-22] MEDS ORDERED: MAG HYDROX/AL HYDROX/SIMETH ES 30 ML SUSPENSION UDCUP PO PRN (14:15)
[2019-06-22] MEDS ORDERED: ONDANSETRON HCL 4 MG TABLET PO PRN (14:15)
[2019-06-22] MEDS ORDERED: IBUPROFEN 400 MG TABLET PO PRN (14:15)
[2019-06-22] MEDS ORDERED: MAGNESIUM HYDROXIDE SUSPENSION 30 ML UDCUP PO PRN (14:15)
[2019-06-22] MEDS ORDERED: PETROLATUM,WHITE 28 GM JELLY TP PRN (14:15)
[2019-06-22] MEDS ORDERED: NICOTINE 14 MG/24 HOUR PATCH TD PRN (14:15)
[2019-06-23] MEDS ORDERED: PNEUMOCOCCAL VACCINE POLYVALENT 0.5 ML VIAL [PPSV23] IM ONE (01:15)
[2019-06-23 07:21] LABS: CHOL/HDL RATIO 3.4 (4.2-7.3)
[2019-06-23 09:16] VITALS: BP 109/73
[2019-06-23] MEDS: ALBUTEROL SULFATE HFA 90 MCG/PUFF 8 GM INHALER IH PRN (11:40)
[2019-06-23] MEDS: GABAPENTIN 300 MG CAPSULE PO SCH ×2 (12:27→18:12)
[2019-06-23] MEDS: SERTRALINE HCL 100 MG TABLET PO SCH (12:27)
[2019-06-23] MEDS: QUEtiapine FUMARATE 200 MG TABLET PO SCH ×2 (12:27→20:44)
[2019-06-23] MEDS ORDERED: POTASSIUM CHLORIDE 20 MEQ ER TABLET PO ONE (12:30)
[2019-06-23] MEDS ORDERED: TraMADol HCL 50 MG TABLET PO PRN (12:30)
[2019-06-23] MEDS: DIVALPROEX SODIUM 500 MG ER TABLET PO SCH (18:12)
[2019-06-24] MEDS: DIVALPROEX SODIUM 500 MG ER TABLET PO SCH ×2 (09:36→16:21)
[2019-06-24] MEDS: QUEtiapine FUMARATE 200 MG TABLET PO SCH ×2 (09:37→20:27)
[2019-06-24] MEDS: SERTRALINE HCL 100 MG TABLET PO SCH (09:37)
[2019-06-24] MEDS: GABAPENTIN 300 MG CAPSULE PO SCH ×3 (09:37→16:21)
[2019-06-24 11:30] LABS: GLUCOSE, URINE (UA) NEGATIVE (NEGATIVE); KETONES,URINE NEGATIVE (NEGATIVE); LEUKOCYTE ESTERASE ,URINE NEGATIVE (NEGATIVE); NITRATE,URINE NEGATIVE (NEGATIVE); OCCULT BLOOD,URINE NEGATIVE (NEGATIVE); PROTEIN,URINE NEGATIVE (NEGATIVE)
[2019-06-24 11:32] LABS: AMPHET/METH SCREEN,URINE POSITIVE (NEGATIVE); APPEARANCE,URINE HAZY (CLEAR); BARBITURATE SCREEN, URINE NEGATIVE (NEGATIVE); BENZODIAZEPINES SCREEN,URINE NEGATIVE (NEGATIVE); BILIRUBIN,URINE PRELIM. POSITIVE (NEGATIVE); CANNABINOID SCREEN,URINE NEGATIVE (NEGATIVE); COCAINE SCREEN,URINE NEGATIVE (NEGATIVE); METHADONE SCREEN, URINE NEGATIVE (NEGATIVE); OPIATE SCREEN,URINE POSITIVE (NEGATIVE)
[2019-06-24 11:35] LABS: PHENCYCLIDINE SCREEN,URINE NEGATIVE (NEGATIVE)
[2019-06-24 14:48] VITALS: BP 106/58
[2019-06-25] MEDS: SERTRALINE HCL 100 MG TABLET PO SCH (08:54)
[2019-06-25] MEDS: DIVALPROEX SODIUM 500 MG ER TABLET PO SCH ×2 (08:54→16:37)
[2019-06-25] MEDS: GABAPENTIN 300 MG CAPSULE PO SCH ×3 (08:54→16:37)
[2019-06-25] MEDS: QUEtiapine FUMARATE 200 MG TABLET PO SCH ×2 (08:54→20:33)
[2019-06-25] MEDS: GuaiFENesin/D-METHORPHAN [SUGAR-FREE] 200-20MG/10 ML SYRUP UDCUP PO PRN (08:59)
[2019-06-25] MEDS: ALBUTEROL SULFATE HFA 90 MCG/PUFF 8 GM INHALER IH PRN (08:59)
[2019-06-25 09:59] VITALS: BP 91/55
[2019-06-25] MEDS: VENLAFAXINE HCL 75 MG ER CAPSULE PO SCH (10:43)
[2019-06-25] MEDS: AZITHROMYCIN 250 MG TABLET PO SCH (13:45)
[2019-06-25] MEDS: LORazepam 2 MG TABLET PO PRN (16:37)
[2019-06-25 17:07] VITALS: BP 90/60
[2019-06-25 21:34] VITALS: BP 106/62
[2019-06-26] MEDS: DIVALPROEX SODIUM 500 MG ER TABLET PO SCH ×2 (08:14→17:57)
[2019-06-26] MEDS: QUEtiapine FUMARATE 200 MG TABLET PO SCH ×2 (08:14→20:36)
[2019-06-26] MEDS: GABAPENTIN 300 MG CAPSULE PO SCH ×3 (08:14→17:57)
[2019-06-26] MEDS: VENLAFAXINE HCL 75 MG ER CAPSULE PO SCH (08:15)
[2019-06-26] MEDS: AZITHROMYCIN 250 MG TABLET PO SCH (08:29)
[2019-06-26 08:47] VITALS: BP 100/58
[2019-06-26 16:30] VITALS: BP 109/65
[2019-06-27] MEDS: GABAPENTIN 300 MG CAPSULE PO SCH ×3 (08:39→16:47)
[2019-06-27] MEDS: DIVALPROEX SODIUM 500 MG ER TABLET PO SCH ×2 (08:39→16:47)
[2019-06-27] MEDS: QUEtiapine FUMARATE 200 MG TABLET PO SCH ×2 (08:40→20:27)
[2019-06-27] MEDS: VENLAFAXINE HCL 75 MG ER CAPSULE PO SCH (08:40)
[2019-06-27] MEDS: AZITHROMYCIN 250 MG TABLET PO SCH (08:40)
[2019-06-27 09:33] VITALS: BP 110/60
[2019-06-28 08:00] VITALS: BP 112/67
[2019-06-28] MEDS: LORazepam 2 MG TABLET PO PRN (09:02)
[2019-06-28] MEDS: VENLAFAXINE HCL 75 MG ER CAPSULE PO SCH ×2 (09:03→17:36)
[2019-06-28] MEDS: DIVALPROEX SODIUM 500 MG ER TABLET PO SCH ×2 (09:03→17:36)
[2019-06-28] MEDS: GABAPENTIN 300 MG CAPSULE PO SCH ×3 (09:03→17:36)
[2019-06-28] MEDS: QUEtiapine FUMARATE 200 MG TABLET PO SCH ×2 (09:03→20:15)
[2019-06-28] MEDS: AZITHROMYCIN 250 MG TABLET PO SCH (09:03)
[2019-06-28] MEDS: ALBUTEROL SULFATE HFA 90 MCG/PUFF 8 GM INHALER IH PRN (09:07)
[2019-06-29 10:07] VITALS: BP 98/73
[2019-06-29] MEDS: DIVALPROEX SODIUM 500 MG ER TABLET PO SCH ×2 (10:23→16:56)
[2019-06-29] MEDS: QUEtiapine FUMARATE 200 MG TABLET PO SCH ×2 (10:23→20:31)
[2019-06-29] MEDS: GABAPENTIN 300 MG CAPSULE PO SCH ×3 (10:23→16:56)
[2019-06-29] MEDS: VENLAFAXINE HCL 75 MG ER CAPSULE PO SCH ×2 (10:23→16:56)
[2019-06-29] MEDS: AZITHROMYCIN 250 MG TABLET PO SCH (10:23)
[2019-06-30] MEDS: AZITHROMYCIN 250 MG TABLET PO SCH (09:53)
[2019-06-30] MEDS: DIVALPROEX SODIUM 500 MG ER TABLET PO SCH ×2 (09:54→16:35)
[2019-06-30] MEDS: QUEtiapine FUMARATE 200 MG TABLET PO SCH ×2 (09:54→20:13)
[2019-06-30] MEDS: GABAPENTIN 300 MG CAPSULE PO SCH ×3 (09:55→16:35)
[2019-06-30] MEDS: VENLAFAXINE HCL 75 MG ER CAPSULE PO SCH ×2 (09:55→16:36)
[2019-06-30] MEDS: ALBUTEROL SULFATE HFA 90 MCG/PUFF 8 GM INHALER IH PRN (09:58)
[2019-06-30 10:26] VITALS: BP 106/62
[2019-06-30 19:02] VITALS: BP 102/64
[2019-07-01] MEDS: VENLAFAXINE HCL 75 MG ER CAPSULE PO SCH ×2 (09:46→16:21)
[2019-07-01] MEDS: DIVALPROEX SODIUM 500 MG ER TABLET PO SCH ×2 (09:46→16:21)
[2019-07-01] MEDS: ALBUTEROL SULFATE HFA 90 MCG/PUFF 8 GM INHALER IH PRN (09:47)
[2019-07-01] MEDS: GABAPENTIN 300 MG CAPSULE PO SCH ×3 (09:47→16:21)
[2019-07-01] MEDS: QUEtiapine FUMARATE 200 MG TABLET PO SCH ×2 (09:47→20:20)
[2019-07-01 16:30] VITALS: BP 97/74
[2019-07-02] MEDS: DIVALPROEX SODIUM 500 MG ER TABLET PO SCH ×2 (08:26→16:19)
[2019-07-02] MEDS: QUEtiapine FUMARATE 200 MG TABLET PO SCH ×2 (08:26→20:20)
[2019-07-02] MEDS: GABAPENTIN 300 MG CAPSULE PO SCH ×3 (08:26→16:19)
[2019-07-02] MEDS: VENLAFAXINE HCL 75 MG ER CAPSULE PO SCH ×2 (08:26→16:19)
[2019-07-02 09:53] VITALS: BP 104/65
[2019-07-02 16:05] VITALS: BP 114/70
[2019-07-02] MEDS: FERROUS SULFATE 325 MG EC TABLET PO SCH (16:19)
[2019-07-03] MEDS: FERROUS SULFATE 325 MG EC TABLET PO SCH ×2 (06:45→16:53)
[2019-07-03] MEDS: DIVALPROEX SODIUM 500 MG ER TABLET PO SCH ×2 (09:03→16:53)
[2019-07-03] MEDS: QUEtiapine FUMARATE 200 MG TABLET PO SCH ×2 (09:03→20:21)
[2019-07-03] MEDS: VENLAFAXINE HCL 75 MG ER CAPSULE PO SCH ×2 (09:03→16:53)
[2019-07-03] MEDS: GABAPENTIN 300 MG CAPSULE PO SCH ×3 (09:04→16:53)
[2019-07-03 10:43] VITALS: BP 111/78
[2019-07-03 17:17] VITALS: BP 99/58
[2019-07-04] MEDS: FERROUS SULFATE 325 MG EC TABLET PO SCH ×2 (06:51→17:32)
[2019-07-04] MEDS: VENLAFAXINE HCL 75 MG ER CAPSULE PO SCH ×2 (08:15→16:03)
[2019-07-04] MEDS: DIVALPROEX SODIUM 500 MG ER TABLET PO SCH ×2 (08:15→16:04)
[2019-07-04] MEDS: QUEtiapine FUMARATE 200 MG TABLET PO SCH ×2 (08:15→20:06)
[2019-07-04] MEDS: GABAPENTIN 300 MG CAPSULE PO SCH ×3 (08:16→16:03)
[2019-07-04 08:22] VITALS: BP 98/64
[2019-07-04 16:50] VITALS: BP 112/62
[2019-07-04] MEDS: LORazepam 2 MG TABLET PO PRN (17:36)
[2019-07-05] MEDS: FERROUS SULFATE 325 MG EC TABLET PO SCH ×2 (07:07→17:13)
[2019-07-05] MEDS: QUEtiapine FUMARATE 200 MG TABLET PO SCH ×2 (08:08→20:21)
[2019-07-05] MEDS: GABAPENTIN 300 MG CAPSULE PO SCH ×3 (08:08→17:13)
[2019-07-05] MEDS: DIVALPROEX SODIUM 500 MG ER TABLET PO SCH ×2 (08:08→17:13)
[2019-07-05] MEDS: VENLAFAXINE HCL 75 MG ER CAPSULE PO SCH ×2 (08:09→17:13)
[2019-07-05] MEDS: ALBUTEROL SULFATE HFA 90 MCG/PUFF 8 GM INHALER IH PRN (08:13)
[2019-07-05 09:00] VITALS: BP 98/62
[2019-07-05 17:07] VITALS: BP 103/61
[2019-07-05] MEDS: HALOPERIDOL 5 MG TABLET PO PRN (19:34)
[2019-07-06] MEDS: FERROUS SULFATE 325 MG EC TABLET PO SCH ×2 (06:47→17:23)
[2019-07-06] MEDS: GABAPENTIN 300 MG CAPSULE PO SCH ×3 (08:27→17:23)
[2019-07-06] MEDS: VENLAFAXINE HCL 75 MG ER CAPSULE PO SCH ×2 (08:27→17:23)
[2019-07-06] MEDS: QUEtiapine FUMARATE 200 MG TABLET PO SCH ×2 (08:27→20:15)
[2019-07-06] MEDS: DIVALPROEX SODIUM 500 MG ER TABLET PO SCH ×2 (08:27→17:23)
[2019-07-06] MEDS: LORazepam 2 MG TABLET PO PRN (08:29)
[2019-07-06 08:35] VITALS: BP 102/54
[2019-07-06] MEDS: GuaiFENesin/D-METHORPHAN [SUGAR-FREE] 200-20MG/10 ML SYRUP UDCUP PO PRN (08:38)
[2019-07-06 11:04] VITALS: BP 102/54
[2019-07-07] MEDS: FERROUS SULFATE 325 MG EC TABLET PO SCH ×2 (06:49→16:27)
[2019-07-07 08:00] VITALS: BP 104/67
[2019-07-07] MEDS: DIVALPROEX SODIUM 500 MG ER TABLET PO SCH ×2 (08:16→16:27)
[2019-07-07] MEDS: QUEtiapine FUMARATE 200 MG TABLET PO SCH ×2 (08:16→20:24)
[2019-07-07] MEDS: GABAPENTIN 300 MG CAPSULE PO SCH ×3 (08:17→16:27)
[2019-07-07] MEDS: VENLAFAXINE HCL 75 MG ER CAPSULE PO SCH ×2 (08:17→16:27)
[2019-07-07 11:54] LABS: BASOPHILS % (AUTO) 0.9 % (0.0-2.0); EOSINOPHILS % (AUTO) 0.8 % (1.0-6.0); HEMATOCRIT 36.7 % (41-53); HEMOGLOBIN 11.8 g/dL (13.5-17.5); LYMPHOCYTES # (AUTO) 1.2 K/uL (1.0-4.8); LYMPHOCYTES % (AUTO) 14.5 % (22.0-44.0); MEAN CORPUSCULAR HEMOGLOBIN 28.3 pg (26.0-34.0); MEAN CORPUSCULAR HGB CONC 32.2 G/dL (31.0-37.0); MEAN CORPUSCULAR VOLUME 88 fL (80-100); MONOCYTES # (AUTO) 0.7 K/uL (0.1-1.0); NEUTROPHILS # (AUTO) 6.3 K/uL (1.8-7.7); NEUTROPHILS % (AUTO) 75.8 % (40.0-70.0); PLATELET COUNT (AUTO) 190 K/uL (150-450); RED BLOOD CELL COUNT(AUTO) 4.19 MIL/uL (4.50-5.90); RED CELL DISTRIBUTION WIDTH 18.2 % (11.5-14.5)
[2019-07-07 12:30] LABS: ANION GAP 9 mmol/L (8-16); CALCIUM, TOTAL 8.6 mg/dL (8.8-10.5); CARBON DIOXIDE 28 mmol/L (22-29); CHLORIDE 99 mmol/L (98-107); GLOMERULAR FILTR. RATE CALC > 60 mL/min (>60); GLUCOSE,RANDOM 114 mg/dL (70-110); POTASSIUM 4.3 mmol/L (3.5-5.1); SODIUM SERUM 136 mmol/L (136-145); UREA NITROGEN, BLOOD 20 mg/dL (7-18)
[2019-07-07 13:10] LABS: APPEARANCE,URINE CLEAR (CLEAR); BACTERIA,URINE None Seen /HPF (None Seen); BILIRUBIN,URINE NEGATIVE (NEGATIVE); GLUCOSE, URINE (UA) NEGATIVE (NEGATIVE); KETONES,URINE NEGATIVE (NEGATIVE); LEUKOCYTE ESTERASE ,URINE NEGATIVE (NEGATIVE); NITRATE,URINE NEGATIVE (NEGATIVE); OCCULT BLOOD,URINE NEGATIVE (NEGATIVE); PH,URINE 6.5 (5.0-8.0); PROTEIN,URINE NEGATIVE (NEGATIVE); RBC,URINE None Seen /HPF (0-2); UROBILINOGEN,URINE 0.2 mg/dL (<=1.0); WBC,URINE None Seen /HPF (0-5)
[2019-07-07 16:26] VITALS: BP 98/60
[2019-07-08] MEDS: FERROUS SULFATE 325 MG EC TABLET PO SCH ×2 (07:10→16:18)
[2019-07-08 08:00] VITALS: BP 106/54
[2019-07-08] MEDS: DIVALPROEX SODIUM 500 MG ER TABLET PO SCH ×2 (08:43→16:18)
[2019-07-08] MEDS: QUEtiapine FUMARATE 200 MG TABLET PO SCH ×2 (08:43→20:22)
[2019-07-08] MEDS: VENLAFAXINE HCL 75 MG ER CAPSULE PO SCH ×2 (08:43→16:18)
[2019-07-08] MEDS: GABAPENTIN 300 MG CAPSULE PO SCH ×3 (08:44→16:18)
[2019-07-08] MEDS: LORATADINE 10 MG TABLET PO SCH (09:18)
[2019-07-08] MEDS: FLUTICASONE PROPIONATE 50 MCG/SPRAY 16 GM NASAL SPRAY NASAL SCH ×2 (09:18→16:18)
[2019-07-08] MEDS: HALOPERIDOL 5 MG TABLET PO PRN (20:39)
[2019-07-08] MEDS: LORazepam 2 MG TABLET PO PRN (22:05)
[2019-07-09] MEDS: FERROUS SULFATE 325 MG EC TABLET PO SCH ×2 (06:34→17:32)
[2019-07-09 08:01] VITALS: BP 118/72
[2019-07-09] MEDS: FLUTICASONE PROPIONATE 50 MCG/SPRAY 16 GM NASAL SPRAY NASAL SCH ×2 (08:06→17:35)
[2019-07-09] MEDS: LORATADINE 10 MG TABLET PO SCH (08:06)
[2019-07-09] MEDS: DIVALPROEX SODIUM 500 MG ER TABLET PO SCH ×2 (08:06→17:32)
[2019-07-09] MEDS: VENLAFAXINE HCL 75 MG ER CAPSULE PO SCH ×2 (08:06→17:32)
[2019-07-09] MEDS: GABAPENTIN 300 MG CAPSULE PO SCH ×3 (08:07→17:32)
[2019-07-09] MEDS: QUEtiapine FUMARATE 200 MG TABLET PO SCH ×2 (08:07→20:19)
[2019-07-10] MEDS: FERROUS SULFATE 325 MG EC TABLET PO SCH ×2 (06:46→18:24)
[2019-07-10 09:00] VITALS: BP 116/6
[2019-07-10] MEDS: VENLAFAXINE HCL 75 MG ER CAPSULE PO SCH ×2 (09:14→16:13)
[2019-07-10] MEDS: GABAPENTIN 300 MG CAPSULE PO SCH ×3 (09:15→16:12)
[2019-07-10] MEDS: DIVALPROEX SODIUM 500 MG ER TABLET PO SCH ×2 (09:16→16:13)
[2019-07-10] MEDS: FLUTICASONE PROPIONATE 50 MCG/SPRAY 16 GM NASAL SPRAY NASAL SCH ×2 (09:16→16:13)
[2019-07-10] MEDS: QUEtiapine FUMARATE 200 MG TABLET PO SCH ×2 (09:16→20:59)
[2019-07-10] MEDS: LORATADINE 10 MG TABLET PO SCH (09:16)
[2019-07-10 16:10] VITALS: BP 119/67
[2019-07-10] MEDS: LORazepam 2 MG TABLET PO PRN ×2 (16:13→21:28)
[2019-07-11] MEDS: FERROUS SULFATE 325 MG EC TABLET PO SCH (06:50)
[2019-07-11 08:00] VITALS: BP 115/63
[2019-07-11] MEDS: DIVALPROEX SODIUM 500 MG ER TABLET PO SCH (08:16)
[2019-07-11] MEDS: VENLAFAXINE HCL 75 MG ER CAPSULE PO SCH (08:16)
[2019-07-11] MEDS: FLUTICASONE PROPIONATE 50 MCG/SPRAY 16 GM NASAL SPRAY NASAL SCH (08:16)
[2019-07-11] MEDS: GABAPENTIN 300 MG CAPSULE PO SCH ×2 (08:16→12:31)
[2019-07-11] MEDS: LORATADINE 10 MG TABLET PO SCH (08:16)
[2019-07-11] MEDS: QUEtiapine FUMARATE 200 MG TABLET PO SCH (08:16)
[2019-07-11] MEDS ORDERED: VENL-67 PO (13:37)
[2019-07-11] MEDS ORDERED: FERR-89 PO (13:39)
[2019-07-11] MEDS ORDERED: FLUT16H NASAL (13:39)
[2019-07-11] MEDS ORDERED: LORA10TA7 PO (13:40)
== END 2019-07-11 14:45 | disposition home or self-care (01) | DRG 750 ==
LOC: EMS 06:03 → 3EC 14:44
PROVIDERS: ADMIT Psychiatry & Neurology Child & Adolescent Psychiatry; ATTEND Psychiatry & Neurology Child & Adolescent Psychiatry
DX: F25.1 Schizoaffective disorder, depressive type (principal); R45.851 Suicidal ideations; Z59.0 Homelessness; F12.90 Cannabis use, unspecified, uncomplicated; F17.210 Nicotine dependence, cigarettes, uncomplicated; J45.909 Unspecified asthma, uncomplicated; Z28.21 Immunization not carried out because of patient refusal; F15.90 Other stimulant use, unspecified, uncomplicated; K21.9 Gastro-esophageal reflux disease without esophagitis; F41.9 Anxiety disorder, unspecified; D64.9 Anemia, unspecified; E87.6 Hypokalemia; F14.10 Cocaine abuse, uncomplicated; F11.90 Opioid use, unspecified, uncomplicated
CPT/HCPCS: 80307; 84132; 87081; 96372; 97161; G0480; J1630; J2060; J3535

== ENCOUNTER 2019-07-21 21:01 | Inpatient (IN) | payer MEDICAID ==
[~2019-07-21] VITALS: Ht 172.7 cm; Wt 64.9 kg
[~2019-07-21 21:01] MED LIST changes: +FERR-89 PO; +FLUT16H NASAL; +LORA10TA7 PO; -SERT100T12 PO; +VENL-67 PO
[2019-07-21 21:58] LABS: BASOPHILS % (AUTO) 2.7 % (0.0-2.0); EOSINOPHILS % (AUTO) 8.7 % (1.0-6.0); HEMATOCRIT 36.8 % (41-53); HEMOGLOBIN 12.1 g/dL (13.5-17.5); LYMPHOCYTES # (AUTO) 2.4 K/uL (1.0-4.8); LYMPHOCYTES % (AUTO) 44.6 % (22.0-44.0); MEAN CORPUSCULAR HEMOGLOBIN 28.7 pg (26.0-34.0); MEAN CORPUSCULAR HGB CONC 32.8 G/dL (31.0-37.0); MEAN CORPUSCULAR VOLUME 88 fL (80-100); MONOCYTES # (AUTO) 0.6 K/uL (0.1-1.0); MONOCYTES % (AUTO) 11.3 % (2.0-9.0); NEUTROPHILS # (AUTO) 1.8 K/uL (1.8-7.7); NEUTROPHILS % (AUTO) 32.7 % (40.0-70.0); PLATELET COUNT (AUTO) 300 K/uL (150-450); RED CELL DISTRIBUTION WIDTH 18.1 % (11.5-14.5)
[2019-07-21 22:09] LABS: ANION GAP 7 mmol/L (8-16); CARBON DIOXIDE 27 mmol/L (22-29); CHLORIDE 103 mmol/L (98-107); CREATININE 0.89 mg/dL (0.60-1.30); GLOMERULAR FILTR. RATE CALC > 60 mL/min (>60); GLUCOSE,RANDOM 86 mg/dL (70-110); POTASSIUM 3.5 mmol/L (3.5-5.1); SODIUM SERUM 137 mmol/L (136-145); UREA NITROGEN, BLOOD 20 mg/dL (7-18)
[2019-07-21 22:15] LABS: ALANINE AMINOTRANSFERASE 103 U/L (12-78); ALBUMIN 3.7 g/dL (3.4-5.0); ALKALINE PHOSPHATASE 68 U/L (46-116); ASPARTATE AMINOTRANSFERASE 67 U/L (15-37); BILIRUBIN,TOTAL 0.3 mg/dL (0.1-1.0); TOTAL PROTEIN, SERUM 8.1 g/dL (6.4-8.2)
[2019-07-21 22:29] LABS: VALPROIC ACID < 3 mcg/mL (50-100)
[2019-07-22] MEDS ORDERED: LORazepam 2 MG TABLET PO PRN (03:00)
[2019-07-22] MEDS ORDERED: HALOPERIDOL 5 MG TABLET PO PRN (03:00)
[2019-07-22] MEDS ORDERED: ZOLPIDEM TARTRATE 10 MG TABLET PO PRN (03:00)
[2019-07-22 03:20] LABS: AMPHET/METH SCREEN,URINE POSITIVE (NEGATIVE); BARBITURATE SCREEN, URINE NEGATIVE (NEGATIVE); BENZODIAZEPINES SCREEN,URINE NEGATIVE (NEGATIVE); CANNABINOID SCREEN,URINE NEGATIVE (NEGATIVE); COCAINE SCREEN,URINE NEGATIVE (NEGATIVE); METHADONE SCREEN, URINE NEGATIVE (NEGATIVE); OPIATE SCREEN,URINE POSITIVE (NEGATIVE); PHENCYCLIDINE SCREEN,URINE NEGATIVE (NEGATIVE)
[2019-07-22 05:42] VITALS: BP 116/82
[2019-07-22] MEDS ORDERED: INFLUENZA VIRUS VACCINE QVS 2019-20 (3YR+)/PF 60 MCG/0.5 ML SYRINGE IM ONE (08:00)
[2019-07-22 08:20] VITALS: BP 129/76
[2019-07-22] MEDS: QUEtiapine FUMARATE 200 MG TABLET PO SCH ×2 (10:03→21:11)
[2019-07-22] MEDS: VENLAFAXINE HCL 75 MG ER CAPSULE PO SCH ×2 (10:03→16:20)
[2019-07-22] MEDS: DIVALPROEX SODIUM 500 MG DR TABLET PO SCH ×2 (10:04→16:21)
[2019-07-22] MEDS ORDERED: ONDANSETRON HCL 4 MG TABLET PO PRN (11:45)
[2019-07-22] MEDS ORDERED: ACETAMINOPHEN 325 MG TABLET PO PRN (11:45)
[2019-07-22] MEDS ORDERED: DOCUSATE SODIUM 100 MG CAPSULE PO PRN (11:45)
[2019-07-22] MEDS ORDERED: ALBUTEROL SULFATE HFA 90 MCG/PUFF 8 GM INHALER IH PRN (11:45)
[2019-07-22] MEDS ORDERED: MAG HYDROX/AL HYDROX/SIMETH ES 30 ML SUSPENSION UDCUP PO PRN (11:45)
[2019-07-22] MEDS ORDERED: PETROLATUM,WHITE 28 GM JELLY TP PRN (11:45)
[2019-07-22] MEDS ORDERED: LOPERAMIDE HCL 2 MG CAPSULE PO PRN (11:45)
[2019-07-22] MEDS ORDERED: NICOTINE 14 MG/24 HOUR PATCH TD PRN (11:45)
[2019-07-22] MEDS ORDERED: IBUPROFEN 400 MG TABLET PO PRN (11:45)
[2019-07-22] MEDS ORDERED: CloNIDine HCL 0.1 MG TABLET PO PRN (11:45)
[2019-07-22] MEDS ORDERED: GuaiFENesin/D-METHORPHAN [SUGAR-FREE] 200-20MG/10 ML SYRUP UDCUP PO PRN (11:45)
[2019-07-22] MEDS ORDERED: MAGNESIUM HYDROXIDE SUSPENSION 30 ML UDCUP PO PRN (11:45)
[2019-07-22] MEDS: GABAPENTIN 400 MG CAPSULE PO SCH ×2 (13:00→16:21)
[2019-07-22] MEDS: FERROUS SULFATE 325 MG EC TABLET PO SCH (16:20)
[2019-07-22] MEDS: FLUTICASONE PROPIONATE 50 MCG/SPRAY 16 GM NASAL SPRAY NASAL SCH (16:21)
[2019-07-22 19:22] VITALS: BP 129/99
[2019-07-23] MEDS: FERROUS SULFATE 325 MG EC TABLET PO SCH ×2 (06:43→17:24)
[2019-07-23] MEDS: QUEtiapine FUMARATE 200 MG TABLET PO SCH ×2 (09:22→20:47)
[2019-07-23] MEDS: LORATADINE 10 MG TABLET PO SCH (09:22)
[2019-07-23] MEDS: GABAPENTIN 400 MG CAPSULE PO SCH ×3 (09:22→17:17)
[2019-07-23] MEDS: DIVALPROEX SODIUM 500 MG DR TABLET PO SCH ×2 (09:22→17:17)
[2019-07-23] MEDS: VENLAFAXINE HCL 75 MG ER CAPSULE PO SCH ×2 (09:22→17:17)
[2019-07-23] MEDS: FLUTICASONE PROPIONATE 50 MCG/SPRAY 16 GM NASAL SPRAY NASAL SCH ×2 (09:23→17:16)
[2019-07-23 09:52] VITALS: BP 109/60
[2019-07-23 16:00] VITALS: BP 107/66
[2019-07-23 19:36] VITALS: BP 104/55
[2019-07-23 21:41] VITALS: BP 103/60
[2019-07-24] MEDS: FERROUS SULFATE 325 MG EC TABLET PO SCH ×2 (06:43→17:05)
[2019-07-24] MEDS: VENLAFAXINE HCL 75 MG ER CAPSULE PO SCH ×2 (08:53→17:05)
[2019-07-24] MEDS: FLUTICASONE PROPIONATE 50 MCG/SPRAY 16 GM NASAL SPRAY NASAL SCH ×2 (08:53→17:00)
[2019-07-24] MEDS: QUEtiapine FUMARATE 200 MG TABLET PO SCH ×2 (08:53→20:19)
[2019-07-24] MEDS: LORATADINE 10 MG TABLET PO SCH (08:53)
[2019-07-24] MEDS: DIVALPROEX SODIUM 500 MG DR TABLET PO SCH ×2 (08:53→17:05)
[2019-07-24] MEDS: GABAPENTIN 400 MG CAPSULE PO SCH ×3 (08:53→17:05)
[2019-07-24] MEDS: BACITRACIN/POLYMYXIN B 15 GM OINTMENT TP SCH ×2 (09:00→17:00)
[2019-07-25] MEDS: FERROUS SULFATE 325 MG EC TABLET PO SCH ×2 (06:25→17:00)
[2019-07-25] MEDS: QUEtiapine FUMARATE 200 MG TABLET PO SCH ×2 (09:11→21:00)
[2019-07-25] MEDS: VENLAFAXINE HCL 75 MG ER CAPSULE PO SCH ×2 (09:11→17:00)
[2019-07-25] MEDS: LORATADINE 10 MG TABLET PO SCH (09:12)
[2019-07-25] MEDS: DIVALPROEX SODIUM 500 MG DR TABLET PO SCH ×2 (09:12→17:00)
[2019-07-25] MEDS: GABAPENTIN 400 MG CAPSULE PO SCH ×4 (09:13→17:00)
[2019-07-25] MEDS: FLUTICASONE PROPIONATE 50 MCG/SPRAY 16 GM NASAL SPRAY NASAL SCH ×2 (09:37→17:00)
[2019-07-25] MEDS: BACITRACIN/POLYMYXIN B 15 GM OINTMENT TP SCH (17:00)
[2019-07-26] MEDS ORDERED: GABA-533 PO (14:49)
== END 2019-07-25 22:00 | disposition short-term general hospital (02) | DRG 750 ==
LOC: EMS 21:04 → B3A 07-22 04:00
PROVIDERS: ADMIT Psychiatry & Neurology Child & Adolescent Psychiatry; ATTEND Psychiatry & Neurology Child & Adolescent Psychiatry
DX: F20.0 Paranoid schizophrenia (principal); R74.0 Nonspecific elevation of levels of transaminase and lactic acid dehydrogenase [LDH]; R45.851 Suicidal ideations; D64.9 Anemia, unspecified; F15.90 Other stimulant use, unspecified, uncomplicated; F41.9 Anxiety disorder, unspecified; K21.9 Gastro-esophageal reflux disease without esophagitis; J45.909 Unspecified asthma, uncomplicated; F10.10 Alcohol abuse, uncomplicated; Y90.9 Presence of alcohol in blood, level not specified; Z59.0 Homelessness; Z87.891 Personal history of nicotine dependence
CPT/HCPCS: 87081; G0480

== ENCOUNTER 2019-07-26 14:22 | Inpatient (IN) | payer MEDICAID ==
[~2019-07-26] VITALS: Ht 172.7 cm; Wt 69.6 kg
[2019-07-26 14:32] VITALS: BP 114/61
[2019-07-26] MEDS ORDERED: GABA-533 PO (14:49)
[2019-07-26] MEDS ORDERED: ZOLPIDEM TARTRATE 10 MG TABLET PO PRN (15:00)
[2019-07-26 16:15] VITALS: BP 105/66
[2019-07-26] MEDS ORDERED: PNEUMOCOCCAL VACCINE POLYVALENT 0.5 ML VIAL [PPSV23] IM ONE (17:30)
[2019-07-26 21:26] VITALS: BP 134/71
[2019-07-26] MEDS: LORazepam 2 MG TABLET PO PRN (21:26)
[2019-07-26] MEDS: HALOPERIDOL 5 MG TABLET PO PRN (21:26)
[2019-07-27 02:49] VITALS: BP 110/79
[2019-07-27] MEDS: FERROUS SULFATE 325 MG EC TABLET PO SCH ×2 (06:56→16:16)
[2019-07-27 08:00] VITALS: BP 126/66
[2019-07-27] MEDS: LORATADINE 10 MG TABLET PO SCH (08:53)
[2019-07-27] MEDS: FLUTICASONE PROPIONATE 50 MCG/SPRAY 16 GM NASAL SPRAY NASAL SCH ×2 (08:53→16:16)
[2019-07-27] MEDS: DIVALPROEX SODIUM 500 MG ER TABLET PO SCH ×2 (10:36→16:16)
[2019-07-27] MEDS: VENLAFAXINE HCL 75 MG ER CAPSULE PO SCH (10:36)
[2019-07-27] MEDS ORDERED: ACETAMINOPHEN 325 MG TABLET PO PRN (13:30)
[2019-07-27] MEDS ORDERED: ONDANSETRON HCL 4 MG TABLET PO PRN (13:30)
[2019-07-27] MEDS ORDERED: IBUPROFEN 400 MG TABLET PO PRN (13:30)
[2019-07-27] MEDS ORDERED: MAGNESIUM HYDROXIDE SUSPENSION 30 ML UDCUP PO PRN (13:30)
[2019-07-27] MEDS ORDERED: DOCUSATE SODIUM 100 MG CAPSULE PO PRN (13:30)
[2019-07-27] MEDS ORDERED: PETROLATUM,WHITE 28 GM JELLY TP PRN (13:30)
[2019-07-27] MEDS ORDERED: MAG HYDROX/AL HYDROX/SIMETH ES 30 ML SUSPENSION UDCUP PO PRN (13:30)
[2019-07-27] MEDS ORDERED: CloNIDine HCL 0.1 MG TABLET PO PRN (13:30)
[2019-07-27] MEDS ORDERED: LOPERAMIDE HCL 2 MG CAPSULE PO PRN (13:30)
[2019-07-27] MEDS ORDERED: GuaiFENesin/D-METHORPHAN [SUGAR-FREE] 200-20MG/10 ML SYRUP UDCUP PO PRN (13:30)
[2019-07-27] MEDS ORDERED: NICOTINE 14 MG/24 HOUR PATCH TD PRN (13:30)
[2019-07-27] MEDS ORDERED: ALBUTEROL SULFATE HFA 90 MCG/PUFF 8 GM INHALER IH PRN (13:30)
[2019-07-27 16:00] VITALS: BP 118/76
[2019-07-27] MEDS: MUPIROCIN CALCIUM 2% 22 GM OINTMENT NASAL SCH (16:16)
[2019-07-27] MEDS ORDERED: FLUTICASONE PROPIONATE 50 MCG/SPRAY 16 GM NASAL SPRAY NASAL SCH (17:00)
[2019-07-27] MEDS ORDERED: FERROUS SULFATE 325 MG EC TABLET PO SCH (17:00)
[2019-07-27] MEDS: HALOPERIDOL 5 MG TABLET PO PRN (18:13)
[2019-07-27] MEDS: QUEtiapine FUMARATE 200 MG TABLET PO SCH (20:13)
[2019-07-27] MEDS: LORazepam 2 MG TABLET PO PRN (20:13)
[2019-07-28] MEDS: FERROUS SULFATE 325 MG EC TABLET PO SCH ×2 (06:56→16:53)
[2019-07-28 08:19] VITALS: BP 112/67
[2019-07-28] MEDS: MUPIROCIN CALCIUM 2% 22 GM OINTMENT NASAL SCH ×2 (08:38→16:53)
[2019-07-28] MEDS: FLUTICASONE PROPIONATE 50 MCG/SPRAY 16 GM NASAL SPRAY NASAL SCH ×2 (08:38→16:53)
[2019-07-28] MEDS: DIVALPROEX SODIUM 500 MG ER TABLET PO SCH ×2 (08:39→16:53)
[2019-07-28] MEDS: LORATADINE 10 MG TABLET PO SCH (08:39)
[2019-07-28] MEDS: VENLAFAXINE HCL 75 MG ER CAPSULE PO SCH (08:54)
[2019-07-28] MEDS ORDERED: LORATADINE 10 MG TABLET PO SCH (09:00)
[2019-07-28] MEDS: LORazepam 2 MG TABLET PO PRN ×2 (14:58→20:04)
[2019-07-28 16:35] VITALS: BP 107/67
[2019-07-28] MEDS: QUEtiapine FUMARATE 200 MG TABLET PO SCH (20:04)
[2019-07-29] MEDS: FERROUS SULFATE 325 MG EC TABLET PO SCH (06:52)
[2019-07-29 08:11] VITALS: BP 137/81
[2019-07-29] MEDS: DIVALPROEX SODIUM 500 MG ER TABLET PO SCH (08:40)
[2019-07-29] MEDS: LORATADINE 10 MG TABLET PO SCH (08:40)
[2019-07-29] MEDS: VENLAFAXINE HCL 75 MG ER CAPSULE PO SCH (08:40)
[2019-07-29] MEDS: MUPIROCIN CALCIUM 2% 22 GM OINTMENT NASAL SCH (08:41)
[2019-07-29] MEDS: FLUTICASONE PROPIONATE 50 MCG/SPRAY 16 GM NASAL SPRAY NASAL SCH (08:42)
[2019-07-29] MEDS ORDERED: VENL75CA55 PO (09:39)
[2019-07-29] MEDS ORDERED: QUET200T29 PO (09:39)
[2019-07-29] MEDS ORDERED: DIVA500T52 PO (09:39)
== END 2019-07-29 13:11 | disposition home or self-care (01) | DRG 750 ==
LOC: B3A 16:10
PROVIDERS: ADMIT Psychiatry & Neurology Child & Adolescent Psychiatry; ATTEND Psychiatry & Neurology Child & Adolescent Psychiatry
DX: F25.1 Schizoaffective disorder, depressive type (principal); R45.851 Suicidal ideations; Z59.0 Homelessness; D64.9 Anemia, unspecified; J45.909 Unspecified asthma, uncomplicated; K21.9 Gastro-esophageal reflux disease without esophagitis; Z79.899 Other long term (current) drug therapy; F15.90 Other stimulant use, unspecified, uncomplicated; Z85.47 Personal history of malignant neoplasm of testis; Z88.0 Allergy status to penicillin; Z79.891 Long term (current) use of opiate analgesic
CPT/HCPCS: 87081; J3535

== ENCOUNTER 2019-08-02 04:45 | Emergency (ER) | payer MEDICAID ==
[~2019-08-02] VITALS: Ht 175.3 cm; Wt 79.5 kg
[~2019-08-02 04:45] MED LIST changes: -GABA-531 PO; +QUET200T29 PO; +VENL75CA55 PO
[2019-08-02 07:59] VITALS: BP 135/75
== END 2019-08-02 08:03 | disposition home or self-care (01) ==
LOC: EMS 04:45
DX: F20.9 Schizophrenia, unspecified (principal); J45.909 Unspecified asthma, uncomplicated; F31.9 Bipolar disorder, unspecified; F17.210 Nicotine dependence, cigarettes, uncomplicated; F15.90 Other stimulant use, unspecified, uncomplicated; F11.90 Opioid use, unspecified, uncomplicated; Z85.89 Personal history of malignant neoplasm of other organs and systems; Z98.890 Other specified postprocedural states; Z79.899 Other long term (current) drug therapy; Z88.0 Allergy status to penicillin; Z88.5 Allergy status to narcotic agent

== ENCOUNTER 2020-02-09 15:34 | Inpatient (IN) | payer MEDICAID ==
[~2020-02-09] VITALS: Ht 175.3 cm; Wt 65.9 kg
[2020-02-09] MEDS ORDERED: LORazepam 2 MG/ML VIAL IM ONE (17:00)
[2020-02-09] MEDS ORDERED: HALOPERIDOL LACTATE 5 MG/ML VIAL IM ONE (17:00)
[2020-02-09] MEDS ORDERED: DiphenhydrAMINE HCL 50 MG/ML VIAL IM ONE (17:00)
[2020-02-09 17:16] LABS: ANION GAP 8 mmol/L (8-16); CALCIUM, TOTAL 8.9 mg/dL (8.8-10.5); CARBON DIOXIDE 28 mmol/L (22-29); CHLORIDE 97 mmol/L (98-107); CREATININE 1.23 mg/dL (0.60-1.30); GLOMERULAR FILTR. RATE CALC > 60 mL/min (>60); GLUCOSE,RANDOM 112 mg/dL (70-110); POTASSIUM 3.5 mmol/L (3.5-5.1); SODIUM SERUM 133 mmol/L (136-145); UREA NITROGEN, BLOOD 28 mg/dL (7-18)
[2020-02-09 17:22] LABS: ALANINE AMINOTRANSFERASE 216 U/L (12-78); ALBUMIN 3.5 g/dL (3.4-5.0); ALKALINE PHOSPHATASE 74 U/L (46-116); ASPARTATE AMINOTRANSFERASE 251 U/L (15-37); BILIRUBIN,TOTAL 0.4 mg/dL (0.1-1.0)
[2020-02-09 20:07] VITALS: BP 118/68
[2020-02-09] MEDS ORDERED: PNEUMOCOCCAL VACCINE POLYVALENT 0.5 ML VIAL [PPSV23] IM ONE (23:45)
[2020-02-10 00:23] VITALS: BP 123/72
[2020-02-10 08:15] VITALS: BP 105/62
[2020-02-10] MEDS ORDERED: MAGNESIUM HYDROXIDE SUSPENSION 30 ML UDCUP PO PRN (09:30)
[2020-02-10] MEDS ORDERED: DOCUSATE SODIUM 100 MG CAPSULE PO PRN (09:30)
[2020-02-10] MEDS ORDERED: PETROLATUM,WHITE 28 GM JELLY TP PRN (09:30)
[2020-02-10] MEDS ORDERED: CloNIDine HCL 0.1 MG TABLET PO PRN (09:30)
[2020-02-10] MEDS ORDERED: ACETAMINOPHEN 325 MG TABLET PO PRN (09:30)
[2020-02-10] MEDS ORDERED: ONDANSETRON HCL 4 MG TABLET PO PRN (09:30)
[2020-02-10] MEDS ORDERED: MAG HYDROX/AL HYDROX/SIMETH ES 30 ML SUSPENSION UDCUP PO PRN (09:30)
[2020-02-10] MEDS ORDERED: NICOTINE 14 MG/24 HOUR PATCH TD PRN (09:30)
[2020-02-10] MEDS ORDERED: ALBUTEROL SULFATE HFA 90 MCG/PUFF 8 GM INHALER IH PRN (09:30)
[2020-02-10] MEDS ORDERED: IBUPROFEN 400 MG TABLET PO PRN (09:30)
[2020-02-10] MEDS ORDERED: GuaiFENesin/D-METHORPHAN [SUGAR-FREE] 200-20MG/10 ML SYRUP UDCUP PO PRN (09:30)
[2020-02-10] MEDS ORDERED: LOPERAMIDE HCL 2 MG CAPSULE PO PRN (09:30)
[2020-02-10 17:05] VITALS: BP 116/67
[2020-02-10] MEDS: DIVALPROEX SODIUM 500 MG DR TABLET PO SCH (20:22)
[2020-02-10] MEDS: QUEtiapine FUMARATE 200 MG TABLET PO SCH (20:23)
[2020-02-11 06:10] VITALS: BP 112/62
[2020-02-11 07:50] LABS: ANION GAP 5 mmol/L (8-16); CALCIUM, TOTAL 8.5 mg/dL (8.8-10.5); CARBON DIOXIDE 30 mmol/L (22-29); CHLORIDE 104 mmol/L (98-107); CREATININE 0.84 mg/dL (0.60-1.30); GLOMERULAR FILTR. RATE CALC > 60 mL/min (>60); GLUCOSE,RANDOM 94 mg/dL (70-110); POTASSIUM 4.3 mmol/L (3.5-5.1); SODIUM SERUM 139 mmol/L (136-145); UREA NITROGEN, BLOOD 19 mg/dL (7-18)
[2020-02-11 08:20] VITALS: BP 112/65
[2020-02-11] MEDS: DIVALPROEX SODIUM 500 MG DR TABLET PO SCH ×2 (09:15→20:49)
[2020-02-11] MEDS: VENLAFAXINE HCL 75 MG ER CAPSULE PO SCH (09:15)
[2020-02-11 16:03] VITALS: BP 108/62
[2020-02-11] MEDS: QUEtiapine FUMARATE 200 MG TABLET PO SCH (20:49)
[2020-02-12 05:28] VITALS: BP 118/74
[2020-02-12 08:02] VITALS: BP 105/60
[2020-02-12] MEDS: VENLAFAXINE HCL 75 MG ER CAPSULE PO SCH (09:16)
[2020-02-12] MEDS: DIVALPROEX SODIUM 500 MG DR TABLET PO SCH ×2 (09:16→21:18)
[2020-02-12 16:02] VITALS: BP 113/60
[2020-02-12] MEDS: QUEtiapine FUMARATE 200 MG TABLET PO SCH (21:18)
[2020-02-13 05:58] VITALS: BP 116/64
[2020-02-13] MEDS: DIVALPROEX SODIUM 500 MG DR TABLET PO SCH ×2 (08:02→21:01)
[2020-02-13] MEDS: VENLAFAXINE HCL 75 MG ER CAPSULE PO SCH (08:02)
[2020-02-13 08:11] VITALS: BP_SYST 114; BP_SYST 116; BP_DIAS 64; BP_DIAS 67
[2020-02-13] MEDS: LORazepam 2 MG TABLET PO PRN (12:58)
[2020-02-13 16:19] VITALS: BP 106/68
[2020-02-13] MEDS: BACITRACIN 28.4 GM OINTMENT TP SCH (17:00)
[2020-02-13] MEDS: QUEtiapine FUMARATE 200 MG TABLET PO SCH (21:01)
[2020-02-14 05:27] VITALS: BP 121/79
[2020-02-14 08:05] VITALS: BP 108/66
[2020-02-14] MEDS: VENLAFAXINE HCL 75 MG ER CAPSULE PO SCH (09:00)
[2020-02-14] MEDS: BACITRACIN 28.4 GM OINTMENT TP SCH ×3 (09:00→16:27)
[2020-02-14] MEDS: DIVALPROEX SODIUM 500 MG DR TABLET PO SCH ×2 (11:14→20:05)
[2020-02-14 16:05] VITALS: BP 115/69
[2020-02-14] MEDS: LORazepam 2 MG TABLET PO PRN (16:27)
[2020-02-14] MEDS: QUEtiapine FUMARATE 200 MG TABLET PO SCH (20:05)
[2020-02-15 05:07] VITALS: BP 101/65
[2020-02-15 08:49] VITALS: BP 99/52
[2020-02-15] MEDS: BACITRACIN 28.4 GM OINTMENT TP SCH ×3 (09:36→16:49)
[2020-02-15] MEDS: DIVALPROEX SODIUM 500 MG DR TABLET PO SCH ×2 (09:36→20:09)
[2020-02-15] MEDS: VENLAFAXINE HCL 75 MG ER CAPSULE PO SCH (09:37)
[2020-02-15] MEDS: LORazepam 2 MG TABLET PO PRN (16:49)
[2020-02-15 17:05] VITALS: BP 112/62
[2020-02-15] MEDS: HALOPERIDOL 5 MG TABLET PO PRN (17:23)
[2020-02-15] MEDS: QUEtiapine FUMARATE 200 MG TABLET PO SCH (20:09)
[2020-02-15] MEDS: ZOLPIDEM TARTRATE 10 MG TABLET PO PRN (20:09)
[2020-02-16 06:01] VITALS: BP 104/61
[2020-02-16 08:02] VITALS: BP 101/61
[2020-02-16] MEDS: DIVALPROEX SODIUM 500 MG DR TABLET PO SCH ×2 (10:40→20:31)
[2020-02-16] MEDS: VENLAFAXINE HCL 75 MG ER CAPSULE PO SCH (10:45)
[2020-02-16] MEDS: BACITRACIN 28.4 GM OINTMENT TP SCH ×3 (10:46→16:37)
[2020-02-16 16:01] VITALS: BP 108/58
[2020-02-16] MEDS: LORazepam 2 MG TABLET PO PRN (16:28)
[2020-02-16] MEDS: QUEtiapine FUMARATE 200 MG TABLET PO SCH (20:31)
[2020-02-16] MEDS: ZOLPIDEM TARTRATE 10 MG TABLET PO PRN (20:32)
[2020-02-17 02:31] VITALS: BP 115/63
[2020-02-17 06:11] VITALS: BP 100/53
[2020-02-17 08:19] VITALS: BP 109/61
[2020-02-17] MEDS: DIVALPROEX SODIUM 500 MG DR TABLET PO SCH ×2 (09:21→20:11)
[2020-02-17] MEDS: LORazepam 2 MG TABLET PO PRN ×2 (09:21→17:50)
[2020-02-17] MEDS: VENLAFAXINE HCL 150 MG ER CAPSULE PO SCH (09:22)
[2020-02-17] MEDS: BACITRACIN 28.4 GM OINTMENT TP SCH ×3 (09:50→16:05)
[2020-02-17 16:02] VITALS: BP 121/66
[2020-02-17] MEDS: HALOPERIDOL 5 MG TABLET PO PRN (17:50)
[2020-02-17] MEDS: ZOLPIDEM TARTRATE 10 MG TABLET PO PRN (20:11)
[2020-02-17] MEDS: QUEtiapine FUMARATE 200 MG TABLET PO SCH (20:11)
[2020-02-18] MEDS: DIVALPROEX SODIUM 500 MG DR TABLET PO SCH ×2 (08:45→20:18)
[2020-02-18] MEDS: VENLAFAXINE HCL 150 MG ER CAPSULE PO SCH (08:46)
[2020-02-18] MEDS: BACITRACIN 28.4 GM OINTMENT TP SCH ×3 (08:46→17:01)
[2020-02-18 08:49] VITALS: BP 90/54
[2020-02-18 16:00] VITALS: BP 119/62
[2020-02-18] MEDS: LORazepam 2 MG TABLET PO PRN (16:38)
[2020-02-18] MEDS: QUEtiapine FUMARATE 200 MG TABLET PO SCH (20:18)
[2020-02-19 00:18] VITALS: BP 111/62
[2020-02-19 08:30] VITALS: BP 101/60
[2020-02-19] MEDS: BACITRACIN 28.4 GM OINTMENT TP SCH ×3 (09:00→16:31)
[2020-02-19] MEDS: TERBINAFINE HCL 1% 30 GM CREAM TP SCH ×2 (09:00→17:00)
[2020-02-19] MEDS: DIVALPROEX SODIUM 500 MG DR TABLET PO SCH ×2 (09:10→20:31)
[2020-02-19] MEDS: VENLAFAXINE HCL 150 MG ER CAPSULE PO SCH (09:10)
[2020-02-19] MEDS: HALOPERIDOL 5 MG TABLET PO PRN (11:53)
[2020-02-19] MEDS: LORazepam 2 MG TABLET PO PRN (11:53)
[2020-02-19] MEDS ORDERED: HALOPERIDOL LACTATE 5 MG/ML VIAL ONE (14:58)
[2020-02-19] MEDS ORDERED: DiphenhydrAMINE HCL 50 MG/ML VIAL ONE (14:58)
[2020-02-19] MEDS ORDERED: HALOPERIDOL DECANOATE 50 MG/ML VIAL IM ONE (15:15)
[2020-02-19] MEDS ORDERED: DiphenhydrAMINE HCL 50 MG/ML VIAL IM ONE (15:15)
[2020-02-19] MEDS ORDERED: HALOPERIDOL LACTATE 5 MG/ML VIAL IM ONE (15:30)
[2020-02-19 16:12] VITALS: BP 119/66
[2020-02-19] MEDS: QUEtiapine FUMARATE 200 MG TABLET PO SCH (20:31)
[2020-02-20 05:33] VITALS: BP 117/62
[2020-02-20 08:12] VITALS: BP 102/60
[2020-02-20] MEDS: VENLAFAXINE HCL 150 MG ER CAPSULE PO SCH (08:35)
[2020-02-20] MEDS: DIVALPROEX SODIUM 500 MG DR TABLET PO SCH (08:35)
[2020-02-20] MEDS: BACITRACIN 28.4 GM OINTMENT TP SCH ×2 (09:00→13:03)
[2020-02-20] MEDS: TERBINAFINE HCL 1% 30 GM CREAM TP SCH (09:00)
[2020-02-20] MEDS ORDERED: VENL-68 PO (13:41)
== END 2020-02-20 13:31 | disposition home or self-care (01) | DRG 750 ==
LOC: EMS 15:36 → B3A 18:36
PROVIDERS: ADMIT Psychiatry & Neurology Child & Adolescent Psychiatry; ATTEND Psychiatry & Neurology Child & Adolescent Psychiatry
DX: F25.0 Schizoaffective disorder, bipolar type (principal); R45.851 Suicidal ideations; E87.1 Hypo-osmolality and hyponatremia; J45.909 Unspecified asthma, uncomplicated; K21.9 Gastro-esophageal reflux disease without esophagitis; D64.9 Anemia, unspecified; F41.9 Anxiety disorder, unspecified; F15.90 Other stimulant use, unspecified, uncomplicated; R74.0 Nonspecific elevation of levels of transaminase and lactic acid dehydrogenase [LDH]; F10.10 Alcohol abuse, uncomplicated; Y90.9 Presence of alcohol in blood, level not specified; Z87.891 Personal history of nicotine dependence; Z59.0 Homelessness; Z91.5 Personal history of self-harm; Z88.0 Allergy status to penicillin; Z88.6 Allergy status to analgesic agent; Z28.21 Immunization not carried out because of patient refusal
CPT/HCPCS: G0480; J1200; J1630; J2060; J3535

== ENCOUNTER 2020-12-31 11:54 | Inpatient (IN) | payer MEDICAID ==
[~2020-12-31] VITALS: Ht 175.3 cm; Wt 68.9 kg
[2020-12-31] MEDS: THIAMINE 100 MG TABLET PO SCH (09:00)
[~2020-12-31 11:54] MED LIST changes: +DIVA-80 PO; -DIVA500T52 PO; -FERR-89 PO; -FLUT16H NASAL; -LORA10TA7 PO; -QUET200T PO; -VENL-67 PO; +VENL-68 PO; -VENL75CA55 PO
[2020-12-31 13:38] LABS: BASOPHILS % (AUTO) 0.9 % (0.0-2.0); HEMATOCRIT 39.5 % (41-53); HEMOGLOBIN 12.4 g/dL (13.5-17.5); LYMPHOCYTES # (AUTO) 1.6 K/uL (1.0-4.8); MEAN CORPUSCULAR HEMOGLOBIN 28.2 pg (26.0-34.0); MEAN CORPUSCULAR HGB CONC 31.4 G/dL (31.0-37.0); MEAN CORPUSCULAR VOLUME 90 fL (80-100); MONOCYTES # (AUTO) 0.7 K/uL (0.1-1.0); MONOCYTES % (AUTO) 9.5 % (2.0-9.0); NEUTROPHILS # (AUTO) 4.9 K/uL (1.8-7.7); NEUTROPHILS % (AUTO) 64.6 % (40.0-70.0); PLATELET COUNT (AUTO) 223 K/uL (150-450); RED BLOOD CELL COUNT(AUTO) 4.39 MIL/uL (4.50-5.90); RED CELL DISTRIBUTION WIDTH 18.7 % (11.5-14.5)
[2020-12-31 13:49] LABS: ANION GAP 9 mmol/L (8-16); CALCIUM, TOTAL 8.7 mg/dL (8.8-10.5); CARBON DIOXIDE 27 mmol/L (22-29); CHLORIDE 98 mmol/L (98-107); CREATININE 1.03 mg/dL (0.60-1.30); GLOMERULAR FILTR. RATE CALC > 60 mL/min (>60); GLUCOSE,RANDOM 92 mg/dL (70-110); POTASSIUM 4.2 mmol/L (3.5-5.1); SODIUM SERUM 134 mmol/L (136-145); UREA NITROGEN, BLOOD 12 mg/dL (7-18)
[2020-12-31 13:55] LABS: ALANINE AMINOTRANSFERASE 229 U/L (12-78); ALBUMIN 3.4 g/dL (3.4-5.0); ALKALINE PHOSPHATASE 68 U/L (46-116); ASPARTATE AMINOTRANSFERASE 130 U/L (15-37); BILIRUBIN,TOTAL 0.6 mg/dL (0.1-1.0); TOTAL PROTEIN, SERUM 8.1 g/dL (6.4-8.2)
[2020-12-31 14:17] LABS: VALPROIC ACID < 3 mcg/mL (50-100)
[2020-12-31 14:37] LABS: COVID AG,FIA SOURCE NASOPHARYNGEAL
[2020-12-31] MEDS ORDERED: LORazepam 2 MG TABLET PO PRN ×2 (15:15→17:15)
[2020-12-31] MEDS ORDERED: TUBERCULIN, PURIFIED PROTEIN DERIVATIVE 5 TU/0.1 ML SYRINGE ID ONE (15:15)
[2020-12-31] MEDS ORDERED: PALIPERIDONE PALMITATE 234 MG/1.5 ML SYRINGE IM ONE (15:15)
[2020-12-31] MEDS ORDERED: GuaiFENesin/D-METHORPHAN [SUGAR-FREE] 200-20MG/10 ML SYRUP UDCUP PO PRN (15:15)
[2020-12-31] MEDS ORDERED: ACETAMINOPHEN 325 MG TABLET PO PRN (15:15)
[2020-12-31] MEDS ORDERED: ZOLPIDEM TARTRATE 10 MG TABLET PO PRN (15:15)
[2020-12-31] MEDS ORDERED: MAG HYDROX/AL HYDROX/SIMETH ES 30 ML SUSPENSION UDCUP PO PRN (15:15)
[2020-12-31] MEDS ORDERED: LOPERAMIDE HCL 2 MG CAPSULE PO PRN (15:15)
[2020-12-31] MEDS ORDERED: HydrOXYzine PAMOATE 50 MG CAPSULE PO PRN (15:15)
[2020-12-31] MEDS ORDERED: MAGNESIUM HYDROXIDE SUSPENSION 30 ML UDCUP PO PRN (15:15)
[2020-12-31] MEDS ORDERED: PROMETHAZINE HCL 25 MG TABLET PO PRN (15:15)
[2020-12-31] MEDS ORDERED: CYANOCOBALAMIN 1,000 MCG/ML VIAL IM ONE (17:15)
[2020-12-31 18:30] VITALS: BP 142/88
[2020-12-31 20:21] VITALS: BP 142/88
[2020-12-31 20:30] VITALS: BP 116/61
[2020-12-31] MEDS: DIVALPROEX SODIUM 500 MG ER TABLET PO SCH (21:00)
[2020-12-31] MEDS: MELATONIN 5 MG TABLET PO SCH (21:00)
[2020-12-31] MEDS: PALIPERIDONE 3 MG ER TABLET PO SCH (21:00)
[2021-01-01] MEDS ORDERED: LORazepam 2 MG TABLET PO PRN (07:00)
[2021-01-01] MEDS: NALTREXONE HCL 50 MG TABLET PO SCH (09:00)
[2021-01-01] MEDS: THIAMINE 100 MG TABLET PO SCH ×2 (09:00→16:40)
[2021-01-01] MEDS: FOLIC ACID 1 MG TABLET PO SCH (09:14)
[2021-01-01] MEDS: LORazepam 2 MG TABLET PO SCH ×5 (09:14→21:41)
[2021-01-01] MEDS: MULTIVITAMINS WITH MINERALS, THERAPEUTIC TABLET PO SCH (09:14)
[2021-01-01] MEDS: OMEGA-3/DHA/EPA/FISH OIL 1,000 MG CAPSULE PO SCH (09:14)
[2021-01-01 14:00] VITALS: BP 112/70
[2021-01-01 16:25] VITALS: BP 110/69
[2021-01-01 17:30] VITALS: BP 105/64
[2021-01-01] MEDS: MELATONIN 5 MG TABLET PO SCH (21:00)
[2021-01-01] MEDS: DIVALPROEX SODIUM 500 MG ER TABLET PO SCH ×2 (21:00→21:40)
[2021-01-01] MEDS: PALIPERIDONE 3 MG ER TABLET PO SCH ×2 (21:00→21:41)
[2021-01-01 21:30] VITALS: BP 107/62
[2021-01-02 00:18] VITALS: BP 121/72
[2021-01-02 02:30] VITALS: BP 112/68
[2021-01-02] MEDS ORDERED: PNEUMOCOCCAL VACCINE POLYVALENT 0.5 ML VIAL [PPSV23] IM ONE (03:15)
[2021-01-02] MEDS ORDERED: INFLUENZA VIRUS VACCINE QVS 2020-21 (6MO+)/PF 60 MCG/0.5 ML SYRINGE IM ONE (03:15)
[2021-01-02] MEDS: THIAMINE 100 MG TABLET PO SCH ×2 (09:14→16:33)
[2021-01-02] MEDS: FOLIC ACID 1 MG TABLET PO SCH (09:14)
[2021-01-02] MEDS: OMEGA-3/DHA/EPA/FISH OIL 1,000 MG CAPSULE PO SCH (09:14)
[2021-01-02] MEDS: MULTIVITAMINS WITH MINERALS, THERAPEUTIC TABLET PO SCH (09:15)
[2021-01-02] MEDS: NALTREXONE HCL 50 MG TABLET PO SCH (09:15)
[2021-01-02 11:55] VITALS: BP 106/60
[2021-01-02] MEDS: LORazepam 2 MG TABLET PO SCH ×3 (12:45→21:28)
[2021-01-02 17:15] VITALS: BP_SYST 100; BP_SYST 102; BP_DIAS 56
[2021-01-02] MEDS: MELATONIN 5 MG TABLET PO SCH (20:25)
[2021-01-02] MEDS: DIVALPROEX SODIUM 500 MG ER TABLET PO SCH (20:25)
[2021-01-03] VITALS: BP 114/67
[2021-01-03 03:41] VITALS: BP 116/67
[2021-01-03] MEDS ORDERED: LORazepam 1 MG TABLET PO PRN (07:00)
[2021-01-03 09:18] VITALS: BP 92/59
[2021-01-03] MEDS: FOLIC ACID 1 MG TABLET PO SCH (10:00)
[2021-01-03] MEDS: THIAMINE 100 MG TABLET PO SCH ×3 (10:01→17:00)
[2021-01-03] MEDS: OMEGA-3/DHA/EPA/FISH OIL 1,000 MG CAPSULE PO SCH (10:01)
[2021-01-03] MEDS: LORazepam 1 MG TABLET PO SCH ×3 (10:01→16:59)
[2021-01-03] MEDS: NALTREXONE HCL 50 MG TABLET PO SCH (10:01)
[2021-01-03] MEDS: MULTIVITAMINS WITH MINERALS, THERAPEUTIC TABLET PO SCH (10:01)
[2021-01-03 17:13] VITALS: BP 111/76
[2021-01-03] MEDS ORDERED: DiphenhydrAMINE HCL 50 MG/ML VIAL IM ONE (19:15)
[2021-01-03] MEDS ORDERED: HALOPERIDOL LACTATE 5 MG/ML VIAL IM ONE (19:15)
[2021-01-03] MEDS ORDERED: DiphenhydrAMINE HCL 50 MG/ML VIAL ONE (19:19)
[2021-01-03] MEDS ORDERED: HALOPERIDOL LACTATE 5 MG/ML VIAL ONE (19:19)
[2021-01-03] MEDS: MELATONIN 5 MG TABLET PO SCH (21:00)
[2021-01-03] MEDS: DIVALPROEX SODIUM 500 MG ER TABLET PO SCH (21:00)
[2021-01-04] MEDS ORDERED: LORazepam 1 MG TABLET PO PRN (07:00)
[2021-01-04 09:00] VITALS: BP 110/69
[2021-01-04] MEDS ORDERED: PALIPERIDONE PALMITATE 156 MG/ML SYRINGE IM ONE (09:00)
[2021-01-04] MEDS: MULTIVITAMINS WITH MINERALS, THERAPEUTIC TABLET PO SCH (09:55)
[2021-01-04] MEDS: FOLIC ACID 1 MG TABLET PO SCH (09:56)
[2021-01-04] MEDS: OMEGA-3/DHA/EPA/FISH OIL 1,000 MG CAPSULE PO SCH (09:56)
[2021-01-04] MEDS: NALTREXONE HCL 50 MG TABLET PO SCH (09:56)
[2021-01-04] MEDS: NAPROXEN 500 MG TABLET PO PRN (12:47)
[2021-01-04 17:40] VITALS: BP 112/66
[2021-01-04] MEDS: THIAMINE 100 MG TABLET PO SCH (18:07)
[2021-01-04] MEDS: SULFAMETHOX/TRIMETH DS 800-160 MG/TABLET PO SCH (18:09)
[2021-01-04] MEDS: DIVALPROEX SODIUM 500 MG ER TABLET PO SCH (21:19)
[2021-01-05] MEDS: NAPROXEN 500 MG TABLET PO PRN ×2 (08:50→18:53)
[2021-01-05] MEDS: MULTIVITAMINS WITH MINERALS, THERAPEUTIC TABLET PO SCH (08:51)
[2021-01-05] MEDS: SULFAMETHOX/TRIMETH DS 800-160 MG/TABLET PO SCH ×2 (08:51→18:52)
[2021-01-05] MEDS: FOLIC ACID 1 MG TABLET PO SCH (08:51)
[2021-01-05] MEDS: OMEGA-3/DHA/EPA/FISH OIL 1,000 MG CAPSULE PO SCH (08:51)
[2021-01-05] MEDS: THIAMINE 100 MG TABLET PO SCH ×2 (08:51→18:52)
[2021-01-05] MEDS: NALTREXONE HCL 50 MG TABLET PO SCH (08:51)
[2021-01-05] MEDS: NICOTINE 21 MG/24 HOUR PATCH TD SCH (14:36)
[2021-01-05 17:28] VITALS: BP 140/82
[2021-01-05] MEDS: PALIPERIDONE 1.5 MG ER TABLET PO PRN ×2 (18:53→23:36)
[2021-01-05] MEDS: DIVALPROEX SODIUM 500 MG ER TABLET PO SCH (20:26)
[2021-01-05] MEDS: HydrOXYzine PAMOATE 50 MG CAPSULE PO PRN (23:36)
[2021-01-06 06:12] VITALS: BP 98/63
[2021-01-06] MEDS: NAPROXEN 500 MG TABLET PO SCH ×2 (07:01→17:27)
[2021-01-06] MEDS: NICOTINE 21 MG/24 HOUR PATCH TD SCH (09:00)
[2021-01-06 10:52] VITALS: BP 108/66
[2021-01-06] MEDS: HydrOXYzine PAMOATE 50 MG CAPSULE PO PRN ×2 (10:52→17:28)
[2021-01-06] MEDS: PALIPERIDONE 1.5 MG ER TABLET PO PRN ×2 (10:52→17:28)
[2021-01-06] MEDS: SULFAMETHOX/TRIMETH DS 800-160 MG/TABLET PO SCH ×2 (10:52→17:26)
[2021-01-06] MEDS: MULTIVITAMINS WITH MINERALS, THERAPEUTIC TABLET PO SCH (10:52)
[2021-01-06] MEDS: THIAMINE 100 MG TABLET PO SCH ×2 (10:53→17:26)
[2021-01-06] MEDS: FOLIC ACID 1 MG TABLET PO SCH (10:53)
[2021-01-06] MEDS: NALTREXONE HCL 50 MG TABLET PO SCH (10:53)
[2021-01-06] MEDS: OMEGA-3/DHA/EPA/FISH OIL 1,000 MG CAPSULE PO SCH (10:56)
[2021-01-06] MEDS ORDERED: ALBUTEROL SULFATE HFA 90 MCG/PUFF 8 GM INHALER IH ONE (16:09)
[2021-01-06 16:26] VITALS: BP 132/75
[2021-01-06] MEDS ORDERED: ALBUTEROL SULFATE HFA 90 MCG/PUFF 8 GM INHALER IH PRN (17:45)
[2021-01-06] MEDS: DIVALPROEX SODIUM 500 MG ER TABLET PO SCH (21:13)
[2021-01-07 01:20] VITALS: BP 125/68
[2021-01-07] MEDS: NAPROXEN 500 MG TABLET PO SCH (06:52)
[2021-01-07] MEDS: THIAMINE 100 MG TABLET PO SCH (08:55)
[2021-01-07] MEDS: SULFAMETHOX/TRIMETH DS 800-160 MG/TABLET PO SCH (08:55)
[2021-01-07] MEDS: OMEGA-3/DHA/EPA/FISH OIL 1,000 MG CAPSULE PO SCH (08:55)
[2021-01-07] MEDS: FOLIC ACID 1 MG TABLET PO SCH (08:55)
[2021-01-07] MEDS: NALTREXONE HCL 50 MG TABLET PO SCH (08:55)
[2021-01-07] MEDS: MULTIVITAMINS WITH MINERALS, THERAPEUTIC TABLET PO SCH (08:55)
[2021-01-07] MEDS: NICOTINE 21 MG/24 HOUR PATCH TD SCH (08:56)
[2021-01-07 09:01] VITALS: BP 101/60
[2021-01-07] MEDS ORDERED: OMEG-135 PO (13:12)
[2021-01-07] MEDS ORDERED: MELA5TAB3 PO (13:12)
[2021-01-07] MEDS ORDERED: NALT50TA PO (13:12)
[2021-01-07] MEDS ORDERED: PALI117D IM (13:12)
[2021-01-07] MEDS ORDERED: DIVA-80 PO (13:12)
[2021-01-07 16:25] VITALS: BP 123/86
== END 2021-01-07 16:30 | disposition home or self-care (01) | DRG 750 ==
LOC: EMS 11:54 → B2S 16:06 → B3A 18:48
PROVIDERS: ADMIT Psychiatry & Neurology Psychiatry; ATTEND Psychiatry & Neurology Psychiatry
DX: F25.9 Schizoaffective disorder, unspecified (principal); Z20.822 Contact with and (suspected) exposure to COVID-19; D64.9 Anemia, unspecified; F60.9 Personality disorder, unspecified; J45.909 Unspecified asthma, uncomplicated; F31.9 Bipolar disorder, unspecified; F17.210 Nicotine dependence, cigarettes, uncomplicated; F10.20 Alcohol dependence, uncomplicated; Y90.9 Presence of alcohol in blood, level not specified; K21.9 Gastro-esophageal reflux disease without esophagitis; M19.90 Unspecified osteoarthritis, unspecified site; R45.851 Suicidal ideations; F11.10 Opioid abuse, uncomplicated; F15.10 Other stimulant abuse, uncomplicated; G89.29 Other chronic pain; M54.9 Dorsalgia, unspecified; Z59.0 Homelessness; Z91.19 Patient's noncompliance with other medical treatment and regimen; Z88.5 Allergy status to narcotic agent; Z88.0 Allergy status to penicillin; Z59.9 Problem related to housing and economic circumstances, unspecified; Z65.3 Problems related to other legal circumstances; Z85.038 Personal history of other malignant neoplasm of large intestine; Z85.47 Personal history of malignant neoplasm of testis; Z55.9 Problems related to education and literacy, unspecified; Z91.81 History of falling
CPT/HCPCS: 87426; 99285; A9575; G0480; J1200; J1630; J3535

== ENCOUNTER 2021-01-21 10:10 | Emergency (ER) | payer MEDICAID ==
[~2021-01-21] VITALS: Ht 175.3 cm; Wt 71.4 kg
[~2021-01-21 10:10] MED LIST changes: +MELA5TAB3 PO; +NALT50TA PO; +OMEG-135 PO; +PALI117D IM; -QUET200T29 PO; -VENL-68 PO
[2021-01-21 10:30] VITALS: BP 151/89
== END 2021-01-21 11:30 | disposition home or self-care (01) ==
LOC: EMS 10:16
DX: T40.0X1A Poisoning by opium, accidental (unintentional), initial encounter (principal); J45.909 Unspecified asthma, uncomplicated; F31.9 Bipolar disorder, unspecified; F20.9 Schizophrenia, unspecified; F17.210 Nicotine dependence, cigarettes, uncomplicated; F11.90 Opioid use, unspecified, uncomplicated; F12.90 Cannabis use, unspecified, uncomplicated; F19.90 Other psychoactive substance use, unspecified, uncomplicated; Z88.0 Allergy status to penicillin; Z88.5 Allergy status to narcotic agent; Y92.89 Other specified places as the place of occurrence of the external cause
CPT/HCPCS: 93005; 99284; Z7502

== ENCOUNTER 2021-04-23 16:25 | Emergency (ER) | payer MEDICAID ==
[~2021-04-23] VITALS: Ht 175.3 cm; Wt 72.7 kg
[2021-04-23 17:58] VITALS: BP 190/103
[2021-04-23] MEDS ORDERED: ALBU8HFA IH (22:08)
== END 2021-04-23 17:42 | disposition left against medical advice (07) ==
LOC: EMS 16:25
DX: F20.9 Schizophrenia, unspecified (principal); J45.909 Unspecified asthma, uncomplicated; F31.9 Bipolar disorder, unspecified; F17.210 Nicotine dependence, cigarettes, uncomplicated; F11.90 Opioid use, unspecified, uncomplicated; F12.90 Cannabis use, unspecified, uncomplicated; F19.90 Other psychoactive substance use, unspecified, uncomplicated; Z88.0 Allergy status to penicillin; Z88.5 Allergy status to narcotic agent
CPT/HCPCS: 99281; Z7502

== ENCOUNTER 2021-04-23 21:45 | Emergency (ER) | payer MEDICAID ==
[~2021-04-23] VITALS: Ht 172.7 cm; Wt 76.4 kg
[2021-04-23] MEDS ORDERED: ALBU8HFA IH (22:08)
[2021-04-23 22:31] LABS: BASOPHILS % (AUTO) 1.2 % (0.0-2.0); EOSINOPHILS % (AUTO) 5.7 % (1.0-6.0); HEMATOCRIT 36.6 % (41-53); HEMOGLOBIN 11.7 g/dL (13.5-17.5); LYMPHOCYTES # (AUTO) 2.8 K/uL (1.0-4.8); LYMPHOCYTES % (AUTO) 38.2 % (22.0-44.0); MEAN CORPUSCULAR HGB CONC 32.1 G/dL (31.0-37.0); MEAN CORPUSCULAR VOLUME 87 fL (80-100); MONOCYTES # (AUTO) 0.8 K/uL (0.1-1.0); MONOCYTES % (AUTO) 10.4 % (2.0-9.0); NEUTROPHILS # (AUTO) 3.3 K/uL (1.8-7.7); NEUTROPHILS % (AUTO) 44.5 % (40.0-70.0); PLATELET COUNT (AUTO) 238 K/uL (150-450); RED BLOOD CELL COUNT(AUTO) 4.19 MIL/uL (4.50-5.90); RED CELL DISTRIBUTION WIDTH 18.2 % (11.5-14.5)
[2021-04-23 22:45] LABS: ANION GAP 6 mmol/L (8-16); CALCIUM, TOTAL 8.4 mg/dL (8.8-10.5); CARBON DIOXIDE 29 mmol/L (22-29); CHLORIDE 105 mmol/L (98-107); CREATININE 1.13 mg/dL (0.60-1.30); GLOMERULAR FILTR. RATE CALC > 60 mL/min (>60); GLUCOSE,RANDOM 124 mg/dL (70-110); POTASSIUM 3.6 mmol/L (3.5-5.1); SODIUM SERUM 140 mmol/L (136-145); UREA NITROGEN, BLOOD 14 mg/dL (7-18)
[2021-04-23 22:50] LABS: ALANINE AMINOTRANSFERASE 20 U/L (12-78); ALBUMIN 3.3 g/dL (3.4-5.0); ALKALINE PHOSPHATASE 68 U/L (46-116); ASPARTATE AMINOTRANSFERASE 18 U/L (15-37); BILIRUBIN,TOTAL 0.3 mg/dL (0.1-1.0); TOTAL PROTEIN, SERUM 7.6 g/dL (6.4-8.2)
[2021-04-23 23:01] LABS: VALPROIC ACID < 3 mcg/mL (50-100)
[2021-04-23 23:39] LABS: COVID AG,FIA SOURCE NASAL SWAB
[2021-04-24] MEDS ORDERED: HALOPERIDOL 5 MG TABLET PO ONE (02:00)
[2021-04-24] MEDS ORDERED: DiphenhydrAMINE HCL 25 MG CAPSULE PO ONE (02:00)
[2021-04-24 02:20] LABS: AMPHET/METH SCREEN,URINE POSITIVE (NEGATIVE); BARBITURATE SCREEN, URINE NEGATIVE (NEGATIVE); BENZODIAZEPINES SCREEN,URINE NEGATIVE (NEGATIVE); CANNABINOID SCREEN,URINE NEGATIVE (NEGATIVE); COCAINE SCREEN,URINE NEGATIVE (NEGATIVE); METHADONE SCREEN, URINE NEGATIVE (NEGATIVE); OPIATE SCREEN,URINE POSITIVE (NEGATIVE)
[2021-04-24 02:21] LABS: PHENCYCLIDINE SCREEN,URINE NEGATIVE (NEGATIVE)
[2021-04-24 04:19] VITALS: BP 131/77
== END 2021-04-24 04:55 | disposition home or self-care (01) ==
LOC: EMS 21:47
DX: F25.9 Schizoaffective disorder, unspecified (principal); F19.10 Other psychoactive substance abuse, uncomplicated; F31.9 Bipolar disorder, unspecified; J45.909 Unspecified asthma, uncomplicated; F17.210 Nicotine dependence, cigarettes, uncomplicated; F11.90 Opioid use, unspecified, uncomplicated; F12.90 Cannabis use, unspecified, uncomplicated; Z20.822 Contact with and (suspected) exposure to COVID-19; Z88.0 Allergy status to penicillin
CPT/HCPCS: 36415; 80053; 80164; 80307; 85025; 87426; 99284; G0480